=== PATIENT | male | born 1955 | race African-American/Black ===

== ENCOUNTER 2016-11-09 11:31 | Inpatient (IN) | payer MEDICARE, MEDICAID ==
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
[2016-11-09 16:57] LABS: Basophils % (A) 1 %; CH 29.3; Eosinophils # (A) 0.2 k/uL (0-0.7); Eosinophils % (A) 4 %; HCT 33.4 % (39.0-53.0); HDW 2.63; HGB 10.1 gm/dL (13.0-17.5); Hypochromasia Slight; Luc # (Auto) 0.18; Luc % (Auto) 4; Lymphocytes # (A) 1.5 k/uL (1.0-4.8); Lymphocytes % (A) 30 %; MCH 28.8 pg (25.0-35.0); MCHC 30.4 g/dL (31.0-37.0); MCV 94.8 fL (80.0-100.0); Mean Platelet Volume 6.8; Monocytes # (A) 0.3 k/uL (0-1.0); Monocytes % (A) 7 %; Neutrophils # (A) 2.8 k/uL (1.3-7.7); Neutrophils % (A) 56 %; RBC 3.52 m/uL (4.30-5.90); RDW 15.3 % (11.5-15.5); WBC (Perox) 5.35
[2016-11-09 17:06] LABS: ALT 39 U/L (21-72); AST 27 U/L (17-59); Alkaline Phosphatase 76 U/L (38-126); Anion Gap 14 mmol/L; Blood Urea Nitrogen 15 mg/dL (9-20); Calcium 9.4 mg/dL (8.4-10.2); Carbon Dioxide 22 mmol/L (22-30); Chloride 106 mmol/L (98-107); Glucose 82 mg/dL (74-99); Non-African American GFR(MDRD) >60 (>60 ml/min/1.73 sqM); Potassium 3.9 mmol/L (3.5-5.1); Sodium 142 mmol/L (137-145); Total Bilirubin 0.4 mg/dL (0.2-1.3); Total Protein 7.8 g/dL (6.3-8.2)
[2016-11-09] MEDS ORDERED: ACETAMINOPHEN TAB 325 MG TAB PO PRN (18:45)
[2016-11-09] MEDS ORDERED: MAGNESIUM HYDROXIDE 2,400 MG/10 ML CUP PO PRN (18:45)
[2016-11-09 19:08] LABS: Appearance,Urine Clear (Clear); Bilirubin,Urine Negative (Negative); Glucose,Urine (UA) Negative (Negative); Ketones,Urine Negative (Negative); Leukocyte Esterase,Urine Negative (Negative); Nitrite,Urine Negative (Negative); Protein,Urine Negative (Negative); Specific Gravity,Urine 1.014 (1.001-1.035); UA Billing (MACRO vs. MICRO) CHEM; Urobilinogen,Urine <2.0 mg/dL (<2.0)
[2016-11-09 20:22] VITALS: BMI 24.4
[2016-11-09] MEDS: RITONAVIR 100 MG TAB PO SCH (22:42)
[2016-11-09] MEDS: MELATONIN 3 MG TABLET PO SCH (22:42)
[2016-11-09] MEDS: AMMONIUM LACTATE 12% LOTION 225 GM BTL TOPICAL SCH (22:42)
[2016-11-09] MEDS: TRIAMCINOLONE ACET 0.5% CREAM 15 GM TUBE TOPICAL SCH (22:43)
[2016-11-09] MEDS: GABAPENTIN 400 MG CAP PO SCH (22:43)
[2016-11-09] MEDS: RIVAROXABAN 10 MG TAB PO SCH (22:43)
[2016-11-10] MEDS: ATENOLOL 25 MG TAB PO SCH (09:24)
[2016-11-10] MEDS: RITONAVIR 100 MG TAB PO SCH ×2 (09:24→20:44)
[2016-11-10] MEDS: OXYBUTYNIN CHLORIDE 5 MG TAB PO SCH (09:25)
[2016-11-10] MEDS: MEGESTROL 400 MG/10 ML CUP PO SCH (09:25)
[2016-11-10] MEDS: ARIPiprazole 5 MG TAB PO SCH (09:26)
[2016-11-10] MEDS: ESCITALOPRAM 20 MG TAB PO SCH (09:26)
[2016-11-10] MEDS: AMMONIUM LACTATE 12% LOTION 225 GM BTL TOPICAL SCH ×2 (09:27→20:56)
[2016-11-10] MEDS: GABAPENTIN 400 MG CAP PO SCH ×4 (09:27→20:46)
[2016-11-10] MEDS: METHADONE 10 MG TAB PO SCH (09:28)
[2016-11-10] MEDS: METHADONE 5 MG TAB PO SCH (09:30)
[2016-11-10] MEDS: NICOTINE 14MG/24HR PATCH TRANSDERM SCH (09:30)
[2016-11-10] MEDS: TRIAMCINOLONE ACET 0.5% CREAM 15 GM TUBE TOPICAL SCH ×5 (09:33→20:57)
[2016-11-10 11:16] LABS: ALT 36 U/L (21-72); AST 29 U/L (17-59); Alkaline Phosphatase 84 U/L (38-126); Anion Gap 15 mmol/L; Blood Urea Nitrogen 15 mg/dL (9-20); Calcium 10.5 mg/dL (8.4-10.2); Carbon Dioxide 26 mmol/L (22-30); Chloride 104 mmol/L (98-107); Glucose 70 mg/dL (74-99); Non-African American GFR(MDRD) >60 (>60 ml/min/1.73 sqM); Potassium 4.6 mmol/L (3.5-5.1); Sodium 145 mmol/L (137-145); Total Bilirubin 0.5 mg/dL (0.2-1.3); Total Protein 8.7 g/dL (6.3-8.2)
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
[2016-11-10] MEDS: PREZISTA 600MG PO SCH ×2 (14:02→20:45)
[2016-11-10] MEDS: ISENTRESS 400 MG PO SCH ×2 (14:03→20:45)
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
[2016-11-10] MEDS: BACLOFEN 10 MG TAB PO PRN ×2 (15:30→20:56)
[2016-11-10] MEDS: ALBUTEROL INHALER 60 PUFF/8 GM INHALER INHALATION PRN ×2 (16:59→21:43)
[2016-11-10] MEDS: RIVAROXABAN 10 MG TAB PO SCH (20:44)
[2016-11-10] MEDS: MELATONIN 3 MG TABLET PO SCH (20:44)
[2016-11-11] MEDS: ATENOLOL 25 MG TAB PO SCH (08:32)
[2016-11-11] MEDS: AMMONIUM LACTATE 12% LOTION 225 GM BTL TOPICAL SCH ×2 (08:32→20:47)
[2016-11-11] MEDS: OXYBUTYNIN CHLORIDE 5 MG TAB PO SCH (08:32)
[2016-11-11] MEDS: TRIAMCINOLONE ACET 0.5% CREAM 15 GM TUBE TOPICAL SCH ×4 (08:32→20:59)
[2016-11-11] MEDS: NICOTINE 14MG/24HR PATCH TRANSDERM SCH (08:32)
[2016-11-11] MEDS: RITONAVIR 100 MG TAB PO SCH ×2 (08:32→20:46)
[2016-11-11] MEDS: ESCITALOPRAM 20 MG TAB PO SCH (08:33)
[2016-11-11] MEDS: METHADONE 10 MG TAB PO SCH (08:33)
[2016-11-11] MEDS: MEGESTROL 400 MG/10 ML CUP PO SCH (08:34)
[2016-11-11] MEDS: ARIPiprazole 5 MG TAB PO SCH (08:34)
[2016-11-11] MEDS: GABAPENTIN 400 MG CAP PO SCH ×4 (08:34→20:45)
[2016-11-11] MEDS: METHADONE 5 MG TAB PO SCH (08:34)
[2016-11-11] MEDS: PREZISTA 600MG PO SCH ×2 (08:35→20:45)
[2016-11-11] MEDS: ALBUTEROL INHALER 60 PUFF/8 GM INHALER INHALATION PRN ×3 (09:04→20:43)
[2016-11-11] MEDS: ISENTRESS 400 MG PO SCH ×2 (09:51→20:45)
[2016-11-11] MEDS: BACLOFEN 10 MG TAB PO PRN ×3 (09:52→20:58)
--- NOTE | 2016-11-11 11:09 | P.PN ---
Progress Note - Text SUBJECTIVE: Mr. Mendez requested a change in the prescription of baclofen. He was so sedated dysarthric that it was difficult to understand exactly what he is requesting. OBJECTIVE: He presented as a casually groomed sedated 61-year-old male with marked vitiligo. His speech was dysarthric and he was drooling. He appeared to attend to the interview. He had a flat facial expression. He was alert and oriented to person, time and place. He showed psychomotor retardation but no abnormal movements. His speech was spontaneous and dysarthric with decreased rate and volume. His affect was flat. He denied suicidal ideation or wishes. He did not express ideas reference or paranoid ideation. His thinking was concrete but his associations were coherent and logical. He did not appear to be responding to internal stimuli. His UDS for admission was positive for methadone and cocaine. He stated he may return to his room and board and will have money to pay his rent when he receives his November SSD. ASSESSMENT: He is sedated, dysarthric and drooling most likely from the 75 mg morning dose of methadone. UDS shows continued use of cocaine. There is no evidence of psychotic symptoms including auditory or visual hallucinations. PLAN: She knew current treatment plan including methadone 75 mg per day as prescribed by [facility]. Evaluate clinical status response to treatment on a daily basis. Participate in therapeutic groups and activities as tolerated. Consider discharge on 11/12/2016.
[2016-11-11] MEDS: MELATONIN 3 MG TABLET PO SCH (20:46)
[2016-11-11] MEDS: RIVAROXABAN 10 MG TAB PO SCH (20:57)
[2016-11-12] MEDS: ALBUTEROL INHALER 60 PUFF/8 GM INHALER INHALATION PRN ×3 (08:21→20:43)
[2016-11-12] MEDS: NICOTINE 14MG/24HR PATCH TRANSDERM SCH (08:36)
[2016-11-12] MEDS: PREZISTA 600MG PO SCH ×2 (08:37→20:58)
[2016-11-12] MEDS: ATENOLOL 25 MG TAB PO SCH (08:37)
[2016-11-12] MEDS: AMMONIUM LACTATE 12% LOTION 225 GM BTL TOPICAL SCH ×2 (08:37→21:08)
[2016-11-12] MEDS: ARIPiprazole 5 MG TAB PO SCH (08:37)
[2016-11-12] MEDS: GABAPENTIN 400 MG CAP PO SCH ×4 (08:38→21:07)
[2016-11-12] MEDS: MEGESTROL 400 MG/10 ML CUP PO SCH (08:38)
[2016-11-12] MEDS: ESCITALOPRAM 20 MG TAB PO SCH (08:38)
[2016-11-12] MEDS: METHADONE 10 MG TAB PO SCH (08:39)
[2016-11-12] MEDS: ISENTRESS 400 MG PO SCH ×2 (08:40→20:58)
[2016-11-12] MEDS: OXYBUTYNIN CHLORIDE 5 MG TAB PO SCH (08:40)
[2016-11-12] MEDS: METHADONE 5 MG TAB PO SCH (08:40)
[2016-11-12] MEDS: RITONAVIR 100 MG TAB PO SCH ×2 (08:41→20:55)
[2016-11-12] MEDS: TRIAMCINOLONE ACET 0.5% CREAM 15 GM TUBE TOPICAL SCH ×4 (08:41→21:08)
[2016-11-12] MEDS: BACLOFEN 10 MG TAB PO PRN ×2 (09:44→21:57)
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
[2016-11-12] MEDS: MAG HYDROX/AL HYDROX/SIMETH 30 ML CUP PO PRN (15:32)
[2016-11-12] MEDS: RIVAROXABAN 10 MG TAB PO SCH (20:55)
[2016-11-12] MEDS: MELATONIN 3 MG TABLET PO SCH (20:56)
[2016-11-13] MEDS: MAG HYDROX/AL HYDROX/SIMETH 30 ML CUP PO PRN (00:47)
[2016-11-13] MEDS: NICOTINE 14MG/24HR PATCH TRANSDERM SCH (08:11)
[2016-11-13] MEDS: AMMONIUM LACTATE 12% LOTION 225 GM BTL TOPICAL SCH ×2 (08:12→21:35)
[2016-11-13] MEDS: ATENOLOL 25 MG TAB PO SCH (08:13)
[2016-11-13] MEDS: PREZISTA 600MG PO SCH ×2 (08:13→21:36)
[2016-11-13] MEDS: ARIPiprazole 10 MG TAB PO SCH (08:13)
[2016-11-13] MEDS: METHADONE 10 MG TAB PO SCH (08:14)
[2016-11-13] MEDS: MEGESTROL 400 MG/10 ML CUP PO SCH (08:14)
[2016-11-13] MEDS: ESCITALOPRAM 20 MG TAB PO SCH (08:14)
[2016-11-13] MEDS: GABAPENTIN 400 MG CAP PO SCH ×4 (08:14→21:39)
[2016-11-13] MEDS: METHADONE 5 MG TAB PO SCH (08:15)
[2016-11-13] MEDS: OXYBUTYNIN CHLORIDE 5 MG TAB PO SCH (08:15)
[2016-11-13] MEDS: RITONAVIR 100 MG TAB PO SCH ×2 (08:16→21:38)
[2016-11-13] MEDS: ISENTRESS 400 MG PO SCH ×2 (08:16→21:37)
[2016-11-13] MEDS: ALBUTEROL INHALER 60 PUFF/8 GM INHALER INHALATION PRN ×3 (09:19→21:15)
[2016-11-13] MEDS: TRIAMCINOLONE ACET 0.5% CREAM 15 GM TUBE TOPICAL SCH ×4 (10:27→21:39)
[2016-11-13] MEDS: BACLOFEN 10 MG TAB PO PRN (14:25)
--- NOTE | 2016-11-13 15:28 | P.PN ---
Progress Note - Text Interval history: Patient is seen in cross coverage today for Dr. Scott. He reports he slept about 4-6 hours, interrupted last night. He does state that he would like some snacks in between meals. His mood he says is down today. He does not voice any adverse psychotropic medication side effects. Mental status exam: He is alert and cooperative with the interview. Speech is fluent, not rapid or pressured. His thought processes are organized. Regarding any hallucinations he states that he woke up out of sleep saying " help me." He does not seem to verbalize any active hallucinations. He denies any thoughts of harm to self or others. His mood is depressed. He does not show any agitation. Plan: Patient will be maintained on current psychotropic medication regimen. We 'll monitor for any medication side effects and monitor his ongoing response. We'll continue to cover this patient for Dr. Scott through the weekend.
[2016-11-13] MEDS: MELATONIN 3 MG TABLET PO SCH (21:36)
[2016-11-13] MEDS: RIVAROXABAN 10 MG TAB PO SCH (21:38)
[2016-11-14] MEDS: AMMONIUM LACTATE 12% LOTION 225 GM BTL TOPICAL SCH ×2 (08:28→20:48)
[2016-11-14] MEDS: NICOTINE 14MG/24HR PATCH TRANSDERM SCH (08:28)
[2016-11-14] MEDS: PREZISTA 600MG PO SCH ×2 (08:29→20:48)
[2016-11-14] MEDS: ARIPiprazole 10 MG TAB PO SCH (08:29)
[2016-11-14] MEDS: ATENOLOL 25 MG TAB PO SCH (08:29)
[2016-11-14] MEDS: RITONAVIR 100 MG TAB PO SCH ×2 (08:30→20:50)
[2016-11-14] MEDS: ISENTRESS 400 MG PO SCH ×2 (08:30→20:49)
[2016-11-14] MEDS: GABAPENTIN 400 MG CAP PO SCH ×4 (08:31→20:50)
[2016-11-14] MEDS: ESCITALOPRAM 20 MG TAB PO SCH (08:31)
[2016-11-14] MEDS: TRIAMCINOLONE ACET 0.5% CREAM 15 GM TUBE TOPICAL SCH ×4 (08:31→20:50)
[2016-11-14] MEDS: OXYBUTYNIN CHLORIDE 5 MG TAB PO SCH (08:31)
[2016-11-14] MEDS: MEGESTROL 400 MG/10 ML CUP PO SCH (08:32)
[2016-11-14] MEDS: METHADONE 10 MG TAB PO SCH (08:32)
[2016-11-14] MEDS: METHADONE 5 MG TAB PO SCH (08:33)
[2016-11-14] MEDS: ALBUTEROL INHALER 60 PUFF/8 GM INHALER INHALATION PRN ×2 (09:32→14:20)
[2016-11-14] MEDS: BACLOFEN 10 MG TAB PO PRN ×2 (10:48→20:52)
--- NOTE | 2016-11-14 16:37 | P.PN ---
Progress Note - Text Interval history: Patient is seen in coverage today for Dr. Scott. He does seem to report that he slept well last night. He did not wake up yelling help me like he had the previous night. Today he verbalizes that he was wearing the nicotine patch that night that he woke up. He relays that he's been participating in groups. He does not voice any adverse psychotropic medication side effects. He seems to report getting along well with others. Mental status exam: He is alert and cooperative with the interview. He does not show any agitation. He describes his mood is doing okay. He denies any thoughts of harm to self others. He has not verbalize any hallucinations. Plan: We'll maintain current psychotropic medication regimen. Continue to monitor for any medication side effects. Dr. Scott will resume care this patient starting tomorrow.
[2016-11-14] MEDS: MELATONIN 3 MG TABLET PO SCH (20:49)
[2016-11-14] MEDS: RIVAROXABAN 10 MG TAB PO SCH (20:50)
[2016-11-15 06:20] VITALS: TEMP 98.6
[2016-11-15] MEDS: ISENTRESS 400 MG PO SCH (08:23)
[2016-11-15] MEDS: PREZISTA 600MG PO SCH (08:23)
[2016-11-15] MEDS: AMMONIUM LACTATE 12% LOTION 225 GM BTL TOPICAL SCH (08:23)
[2016-11-15] MEDS: NICOTINE 14MG/24HR PATCH TRANSDERM SCH (08:24)
[2016-11-15] MEDS: RITONAVIR 100 MG TAB PO SCH (08:24)
[2016-11-15] MEDS: GABAPENTIN 400 MG CAP PO SCH ×2 (08:24→12:35)
[2016-11-15] MEDS: ESCITALOPRAM 20 MG TAB PO SCH (08:24)
[2016-11-15] MEDS: ATENOLOL 25 MG TAB PO SCH (08:24)
[2016-11-15] MEDS: TRIAMCINOLONE ACET 0.5% CREAM 15 GM TUBE TOPICAL SCH ×2 (08:24→13:00)
[2016-11-15] MEDS: ARIPiprazole 10 MG TAB PO SCH (08:24)
[2016-11-15] MEDS: METHADONE 10 MG TAB PO SCH (08:25)
[2016-11-15] MEDS: MEGESTROL 400 MG/10 ML CUP PO SCH (08:25)
[2016-11-15] MEDS: METHADONE 5 MG TAB PO SCH (08:26)
[2016-11-15 08:28] VITALS: BP 136/82; PULSE 70; RESP 18
[2016-11-15] MEDS: ALBUTEROL INHALER 60 PUFF/8 GM INHALER INHALATION PRN ×2 (09:27→13:42)
[2016-11-15] MEDS: BACLOFEN 10 MG TAB PO PRN (10:27)
[2016-11-15] MEDS: OXYBUTYNIN CHLORIDE 5 MG TAB PO SCH (11:10)
--- NOTE | 2016-11-17 10:29 | DS ---
DATE OF ADMISSION: 11/09/2016 DATE OF DISCHARGE: 11/15/2016 PSYCHIATRIC DISCHARGE SUMMARY ADMISSION AND DISCHARGE DIAGNOSES: 1. Opioid use disorder, severe on substitution treatment. 2. Cognitive disorder. 3. Rule out psychotic disorder. 4. Rule out mood disorder. 5. Underlying HIV on HAART with questionable compliance. 6. Essential hypertension. 7. History of lower extremity deep venous thrombosis. 8. History of heart failure. 9. Chronic obstructive pulmonary disease. HISTORY OF PRESENTING ILLNESS: Patient presented with symptoms of depression. He. Is on AA. He was in a methadone clinic. Patient indicated that he was hearing voices telling him to kill himself and also that someone was trying to kill him. He was sleeping poorly. He was taking methadone 75 mg daily and was consistent follow up with methadone maintenance, which was verified by methadone program staff. He has had 4 prior psychiatric hospitalizations with his last in July 2016 with a diagnosis of major depression, substance use disorder included opiates, cocaine and nicotine. He had followup through [facility]. He was discharged in July on Abilify 5 mg a day and Lexapro 20 mg a day. He was vague as to whether or not he had been following through with his medications. His substance use history included history of heroin use for 40 years. He indicated that he had contracted HIV through his IV drug use. He had a history of cocaine use. He was admitted for further evaluation. Past medical history, review of systems and physical exam as per medical consultation of Dr. Woodward. DIAGNOSTIC STUDIES: CBC was positive for a low hemoglobin of 10.1, MCV 94.8. WBC 5.0. Comprehensive metabolic profile was unremarkable, glucose 70, creatinine 0.9. TSH 1.4. Urinalysis unremarkable. Urine drug screen was positive for cocaine and methadone. COURSE OF HOSPITALIZATION: The patient was admitted for comprehensive medical, psychiatric and psychosocial evaluation. We made efforts to engage the patient in individual and group therapeutic activities. The patient was continued on methadone maintenance 75 mg daily. He was also started on Abilify 5 mg a day and Lexapro 20 mg a day. In his hospitalization, the patient had some daytime sedation. It was felt that he may be reacting to methadone, even though he presumably has been compliant with methadone maintenance before his admission. He had not been sleeping well. He had some nightmares. His Abilify was increased to 10 mg a day. Other medications were continued the same. He was cooperative with care. His sleep gradually improved. His mood showed slow gradual improvement. He was tolerating his medications well. He was attending groups. It is noted that he has been compliant with his methadone maintenance though he has not followed through with mental health follow up through [facility] on previous referrals. We had extensive discussions with the patient as well as mental health regards to coordinating a follow-up plan. Patient voiced improvement in his mood and willingness to follow through with a mental health outpatient program. He was able to cooperate to engage in discharge planning. CONDITION AT DISCHARGE: The patient was stable. His mood was improved. He tolerated his medications well. There was no indication of thoughts of self harm. He felt that overall his mood was stable, though he was able to verbalize recognizing the need for further follow-up care. RECOMMENDATIONS AND FOLLOWUP: Patient is discharged to home. DISCHARGE MEDICATIONS: 1. Abilify 10 mg a day. 2. Lexapro 20 mg a day. 3. Albuterol inhaler 2 puffs every 6 hours as needed. 4. Atenolol 25 mg daily. 5. Baclofen 10 mg twice a day as needed. 6. Neurontin 800 mg 4 times a day. 7. Megace 400 mg daily. 8. Methadone 75 mg daily for methadone maintenance. 9. Nicotine patch. 10. Ditropan 5 mg daily. 11. Isentress 400 mg twice a day. 12. Norvir 100 mg twice a day. 13. Xarelto 20 mg a day. 14. Lac-Hydrin topical twice a day. 15. Augmentin 875/125 one tablet twice a day. 16. Zithromax 500 mg a day for 3 days. 17. Prezista 600 mg twice a day. 18. Melatonin 6 mg a day. 19. Kenalog cream 4 times daily. He was given education regarding stop smoking. Followup included an appointment with [facility] November 19 at 9.15. He was referred to Dr. Mohamud for follow up in one week. Patient voiced understanding of discharge plan and follow-up recommendations.
== END 2016-11-15 17:06 | disposition home or self-care (01) | DRG 884 ==
LOC: EC 11:31 → 3MHU 18:40
PROVIDERS: ADMIT Psychiatry & Neurology Psychiatry; ATTEND Psychiatry & Neurology Psychiatry
DX: F09 Unspecified mental disorder due to known physiological condition (principal); R45.851 Suicidal ideations; I11.0 Hypertensive heart disease with heart failure; I50.9 Heart failure, unspecified; F29 Unspecified psychosis not due to a substance or known physiological condition; F39 Unspecified mood [affective] disorder; E78.5 Hyperlipidemia, unspecified; D64.9 Anemia, unspecified; F11.90 Opioid use, unspecified, uncomplicated; F17.200 Nicotine dependence, unspecified, uncomplicated; J44.9 Chronic obstructive pulmonary disease, unspecified; Z21 Asymptomatic human immunodeficiency virus [HIV] infection status; L80 Vitiligo; Z79.899 Other long term (current) drug therapy; Z82.49 Family history of ischemic heart disease and other diseases of the circulatory system; Z86.14 Personal history of Methicillin resistant Staphylococcus aureus infection; Z86.718 Personal history of other venous thrombosis and embolism
CPT/HCPCS: 36415; 80053; 80306; 81003; 82075; 84443; 85025; 94640; 99285

== ENCOUNTER 2017-02-01 11:02 | Emergency (ER) | payer MEDICARE, OTHER ==
[2017-02-01 11:36] VITALS: PULSE 75; RESP 18; TEMP 98.2
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
[2017-02-01] MEDS ORDERED: PROPARACAINE 0.5% OPHTH DROPS 15 ML BTL LEFT EYE STA (12:50)
[2017-02-01 13:37] VITALS: BP 137/84
== END 2017-02-01 13:37 | disposition home or self-care (01) ==
LOC: EC 11:02
DX: H16.002 Unspecified corneal ulcer, left eye (principal); I50.9 Heart failure, unspecified; I10 Essential (primary) hypertension; F31.9 Bipolar disorder, unspecified; F41.9 Anxiety disorder, unspecified; F17.200 Nicotine dependence, unspecified, uncomplicated; Z79.899 Other long term (current) drug therapy; Z79.01 Long term (current) use of anticoagulants; Z88.1 Allergy status to other antibiotic agents; Z88.2 Allergy status to sulfonamides; Z88.6 Allergy status to analgesic agent; Z86.718 Personal history of other venous thrombosis and embolism
CPT/HCPCS: 99283

== ENCOUNTER → 2017-02-01 | Outpatient (CLI) | payer MEDICARE, OTHER ==
[2017-02-01 14:26] LABS: Anisocytosis Slight; Basophils % (A) 1 %; CH 30.1; CHCM 31.3; Eosinophils # (A) 0.2 k/uL (0-0.7); Eosinophils % (A) 3 %; HCT 38.5 % (39.0-53.0); HDW 2.39; Luc % (Auto) 3; Lymphocytes # (A) 1.5 k/uL (1.0-4.8); Lymphocytes % (A) 26 %; MCH 30.3 pg (25.0-35.0); MCHC 31.3 g/dL (31.0-37.0); MCV 96.8 fL (80.0-100.0); Macrocytosis Slight; Mean Platelet Volume 6.4; Monocytes # (A) 0.2 k/uL (0-1.0); Monocytes % (A) 4 %; Neutrophils # (A) 3.6 k/uL (1.3-7.7); Neutrophils % (A) 62 %; RBC 3.97 m/uL (4.30-5.90); RDW 16.6 % (11.5-15.5); WBC 5.8 k/uL (3.8-10.6); WBC (Perox) 6.56
[2017-02-01 14:53] LABS: ALT 51 U/L (21-72); AST 68 U/L (17-59); Alkaline Phosphatase 66 U/L (38-126); Anion Gap 11 mmol/L; Blood Urea Nitrogen 15 mg/dL (9-20); Carbon Dioxide 28 mmol/L (22-30); Chloride 105 mmol/L (98-107); Cholesterol 206 mg/dL (<200); Glucose 71 mg/dL (74-99); HDL Cholesterol 64 mg/dL (40-60); Magnesium 2.1 mg/dL (1.6-2.3); Non-African American GFR(MDRD) >60 (>60 ml/min/1.73 sqM); Potassium 4.5 mmol/L (3.5-5.1); Sodium 144 mmol/L (137-145); Total Bilirubin 0.6 mg/dL (0.2-1.3); Triglycerides 166 mg/dL (<150)
[2017-02-01 15:23] LABS: Prostate Specific Antigen <0.06 ng/mL (0.00-4.00)
[2017-02-01 15:41] LABS: Vitamin B12 398 pg/mL (239-931)
[2017-02-01 20:12] LABS: Hemoglobin A1C 5.5 % (4.2-6.1)
[2017-02-03 09:02] LABS: LOG HCV IU/mL 5.71 (<1.08)
== END | disposition home or self-care (01) ==
LOC: LABWHC1 13:41
PROVIDERS: ATTEND Nurse Practitioner
DX: B20 Human immunodeficiency virus [HIV] disease (principal); B19.20 Unspecified viral hepatitis C without hepatic coma; Z79.899 Other long term (current) drug therapy
CPT/HCPCS: 36415; 80053; 80061; 80306; 82306; 82607; 83036; 83735; 84153; 84439; 84443; 85025; 87522

== ENCOUNTER 2017-02-25 09:50 | Emergency (ER) | payer MEDICARE, OTHER ==
[2017-02-25 10:00] VITALS: BP 140/83; PULSE 94; RESP 20; TEMP 98
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
== END 2017-02-25 11:22 | disposition home or self-care (01) ==
LOC: EC 09:50
DX: H54.7 Unspecified visual loss (principal); F17.200 Nicotine dependence, unspecified, uncomplicated; Z88.1 Allergy status to other antibiotic agents; Z88.2 Allergy status to sulfonamides; Z88.6 Allergy status to analgesic agent
CPT/HCPCS: 99283

== ENCOUNTER 2017-03-28 10:21 | Inpatient (IN) | payer MEDICARE, MEDICAID ==
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
[2017-03-28] MEDS ORDERED: MAG HYDROX/AL HYDROX/SIMETH 30 ML CUP PO PRN (16:38)
[2017-03-28] MEDS ORDERED: LORazepam 1 MG TAB PO PRN (17:35)
[2017-03-28] MEDS ORDERED: LORazepam 2 MG/ML SYRINGE IM PRN (17:35)
[2017-03-28 17:37] LABS: Appearance,Urine Clear (Clear); Bilirubin,Urine Negative (Negative); Glucose,Urine (UA) Negative (Negative); Ketones,Urine Negative (Negative); Leukocyte Esterase,Urine Negative (Negative); Nitrite,Urine Negative (Negative); Protein,Urine Negative (Negative); Specific Gravity,Urine 1.013 (1.001-1.035); UA Billing (MACRO vs. MICRO) CHEM
[2017-03-28] MEDS ORDERED: ZIPRASIDONE 20 MG VIAL IM PRN (17:37)
[2017-03-28] MEDS: GABAPENTIN 400 MG CAP PO SCH (21:45)
[2017-03-28] MEDS: BACLOFEN 10 MG TAB PO SCH (21:47)
[2017-03-28] MEDS: RITONAVIR 100 MG TAB PO SCH (21:47)
[2017-03-28] MEDS: MIRTAZAPINE 45 MG TABLET PO SCH (21:47)
[2017-03-28] MEDS: RALTEGRAVIR POTASSIUM 400 MG TABLET PO SCH (21:48)
[2017-03-28] MEDS: RIVAROXABAN 10 MG TAB PO SCH (21:48)
[2017-03-28] MEDS: TRIAMCINOLONE ACET 0.5% CREAM 15 GM TUBE TOPICAL SCH (22:12)
[2017-03-29] MEDS: BACLOFEN 10 MG TAB PO SCH ×2 (08:25→21:04)
[2017-03-29] MEDS: RALTEGRAVIR POTASSIUM 400 MG TABLET PO SCH ×2 (08:25→21:04)
[2017-03-29] MEDS: amLODIPine 10 MG TAB PO SCH (08:25)
[2017-03-29] MEDS: RITONAVIR 100 MG TAB PO SCH ×2 (08:25→21:04)
[2017-03-29] MEDS: ATENOLOL 25 MG TAB PO SCH (08:25)
[2017-03-29] MEDS: ALBUTEROL INHALER 60 PUFF/8 GM INHALER INHALATION PRN ×2 (08:28→20:20)
[2017-03-29 09:31] LABS: Aty Lym Flag Slight; CH 30.9; CHCM 34.5; HCT 35.5 % (39.0-53.0); HDW 3.19; MCH 30.4 pg (25.0-35.0); MCHC 33.8 g/dL (31.0-37.0); Mean Platelet Volume 7.9; RBC 3.96 m/uL (4.30-5.90); RDW 13.8 % (11.5-15.5); WBC 4.6 k/uL (3.8-10.6); WBC (Perox) 4.74
[2017-03-29 09:32] LABS: MCV 89.8 fL (80.0-100.0)
[2017-03-29] MEDS: TRIAMCINOLONE ACET 0.5% CREAM 15 GM TUBE TOPICAL SCH ×2 (10:22→21:05)
[2017-03-29] MEDS: GABAPENTIN 400 MG CAP PO SCH ×3 (10:35→21:04)
[2017-03-29 10:47] LABS: ALT 17 U/L (21-72); AST 62 U/L (17-59); Alkaline Phosphatase 90 U/L (38-126); Anion Gap 12 mmol/L; Blood Urea Nitrogen 10 mg/dL (9-20); Calcium 10.5 mg/dL (8.4-10.2); Carbon Dioxide 20 mmol/L (22-30); Chloride 113 mmol/L (98-107); Glucose 145 mg/dL (74-99); Non-African American GFR(MDRD) >60 (>60 ml/min/1.73 sqM); Potassium 5.9 mmol/L (3.5-5.1); Sodium 145 mmol/L (137-145); Total Bilirubin 1.1 mg/dL (0.2-1.3); Total Protein 7.8 g/dL (6.3-8.2)
[2017-03-29] MEDS: METHADONE 10 MG TAB PO SCH (10:50)
[2017-03-29 12:38] LABS: Add Differential Manual Differential
[2017-03-29 12:41] LABS: Manual Review Performed; Nucleated Red Blood Cells 0 /100 WBC (0-0); Total Cells Counted 100; Toxic Vacuolation Present
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
[2017-03-29 15:27] VITALS: BMI 24.3
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
[2017-03-29] MEDS: RIVAROXABAN 10 MG TAB PO SCH (21:04)
[2017-03-29] MEDS: MIRTAZAPINE 45 MG TABLET PO SCH (21:04)
[2017-03-29] MEDS: LORazepam 0.5 MG TAB PO PRN (21:08)
[2017-03-30] MEDS: BACLOFEN 10 MG TAB PO SCH ×2 (09:02→20:57)
[2017-03-30] MEDS: ARIPiprazole 10 MG TAB PO SCH (09:02)
[2017-03-30] MEDS: METHADONE 10 MG TAB PO SCH (09:02)
[2017-03-30] MEDS: amLODIPine 10 MG TAB PO SCH (09:02)
[2017-03-30] MEDS: ATENOLOL 25 MG TAB PO SCH (09:02)
[2017-03-30] MEDS: GABAPENTIN 400 MG CAP PO SCH ×3 (09:02→20:59)
[2017-03-30] MEDS: RALTEGRAVIR POTASSIUM 400 MG TABLET PO SCH ×2 (09:03→20:57)
[2017-03-30] MEDS: RITONAVIR 100 MG TAB PO SCH ×2 (09:03→20:57)
[2017-03-30] MEDS: ALBUTEROL INHALER 60 PUFF/8 GM INHALER INHALATION PRN (09:16)
[2017-03-30] MEDS: TRIAMCINOLONE ACET 0.5% CREAM 15 GM TUBE TOPICAL SCH ×2 (10:35→20:58)
--- NOTE | 2017-03-30 12:49 | P.PN ---
Progress Note - Text Interval history: The [place] [facility] [place]. He reports his mood is "Nervous and anxious" regading post discharge placement "I do not like usp ",denies any current hallucination but still endorsing hopeless and helpless feeling , easy overwhelmed with financial and housing problems .Discussed his long history of addiction however he minimizing this Obviously the patient remains in acute safety risk if discharge now without appropriate placement Reviewed medical consult Mental status exam: The patient is alert he is cooperative he reports his mood is "NERVOUS" because "I DO NOT WANT TO END IN STREET" He feels safe in the hospital. He is reporting no homicidal ideation , He is reporting no auditory or visual hallucinations no specific delusions. Insight and judgment are limited Affect is constricted. He demonstrates no verbal or physical aggressiveness. Plan: The patient will continue on his current psychotropic medications , SW is working with [facility] regarding post-discharge placement ,encourage participation in milieu Vital signs reviewed.
[2017-03-30] MEDS: MIRTAZAPINE 45 MG TABLET PO SCH (20:57)
[2017-03-30] MEDS: RIVAROXABAN 10 MG TAB PO SCH (20:58)
[2017-03-31] MEDS: METHADONE 10 MG TAB PO SCH (08:46)
[2017-03-31] MEDS: BACLOFEN 10 MG TAB PO SCH ×2 (08:47→20:53)
[2017-03-31] MEDS: RITONAVIR 100 MG TAB PO SCH ×2 (08:47→20:53)
[2017-03-31] MEDS: GABAPENTIN 400 MG CAP PO SCH ×3 (08:47→20:53)
[2017-03-31] MEDS: amLODIPine 10 MG TAB PO SCH (08:47)
[2017-03-31] MEDS: TRIAMCINOLONE ACET 0.5% CREAM 15 GM TUBE TOPICAL SCH ×2 (08:47→21:00)
[2017-03-31] MEDS: ATENOLOL 25 MG TAB PO SCH (08:47)
[2017-03-31] MEDS: RALTEGRAVIR POTASSIUM 400 MG TABLET PO SCH ×2 (08:47→20:53)
[2017-03-31] MEDS: ARIPiprazole 10 MG TAB PO SCH (09:25)
[2017-03-31] MEDS: ALBUTEROL INHALER 60 PUFF/8 GM INHALER INHALATION PRN ×2 (09:30→16:38)
[2017-03-31 09:58] LABS: ALT 21 U/L (21-72); AST 34 U/L (17-59); Alkaline Phosphatase 106 U/L (38-126); Anion Gap 16 mmol/L; Blood Urea Nitrogen 17 mg/dL (9-20); Calcium 10.4 mg/dL (8.4-10.2); Carbon Dioxide 20 mmol/L (22-30); Chloride 107 mmol/L (98-107); Glucose 93 mg/dL (74-99); Non-African American GFR(MDRD) >60 (>60 ml/min/1.73 sqM); Potassium 4.5 mmol/L (3.5-5.1); Sodium 143 mmol/L (137-145); Total Bilirubin 0.5 mg/dL (0.2-1.3); Total Protein 8.5 g/dL (6.3-8.2)
[2017-03-31] MEDS ORDERED: METHADONE 10 MG TAB PO ONE (15:16)
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
[2017-03-31] MEDS: RIVAROXABAN 10 MG TAB PO SCH (20:53)
[2017-03-31] MEDS: MIRTAZAPINE 45 MG TABLET PO SCH (20:53)
[2017-04-01] MEDS: ARIPiprazole 10 MG TAB PO SCH (08:45)
[2017-04-01] MEDS: amLODIPine 10 MG TAB PO SCH (08:45)
[2017-04-01] MEDS: ATENOLOL 25 MG TAB PO SCH (08:45)
[2017-04-01] MEDS: METHADONE 10 MG TAB PO SCH (08:45)
[2017-04-01] MEDS: GABAPENTIN 400 MG CAP PO SCH ×3 (08:45→20:20)
[2017-04-01] MEDS: BACLOFEN 10 MG TAB PO SCH ×2 (08:45→20:20)
[2017-04-01] MEDS: RITONAVIR 100 MG TAB PO SCH ×2 (08:47→20:20)
[2017-04-01] MEDS: TRIAMCINOLONE ACET 0.5% CREAM 15 GM TUBE TOPICAL SCH ×2 (08:48→20:20)
[2017-04-01] MEDS: LORazepam 0.5 MG TAB PO PRN (08:48)
[2017-04-01] MEDS: RALTEGRAVIR POTASSIUM 400 MG TABLET PO SCH ×2 (08:48→20:20)
[2017-04-01] MEDS: ALBUTEROL INHALER 60 PUFF/8 GM INHALER INHALATION PRN ×2 (09:15→21:00)
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
[2017-04-01] MEDS: LIDOCAINE 3% TOPICAL SCH ×3 (19:09→19:11)
[2017-04-01] MEDS: DARUNAVIR ETHANOLATE 600 MG PO SCH ×3 (19:10→19:12)
[2017-04-01] MEDS: RIVAROXABAN 10 MG TAB PO SCH (20:20)
[2017-04-01] MEDS: MIRTAZAPINE 45 MG TABLET PO SCH (20:20)
[2017-04-02] MEDS: ARIPiprazole 10 MG TAB PO SCH (08:37)
[2017-04-02] MEDS: RALTEGRAVIR POTASSIUM 400 MG TABLET PO SCH ×2 (08:37→20:59)
[2017-04-02] MEDS: ATENOLOL 25 MG TAB PO SCH (08:37)
[2017-04-02] MEDS: BACLOFEN 10 MG TAB PO SCH ×2 (08:37→20:59)
[2017-04-02] MEDS: amLODIPine 10 MG TAB PO SCH (08:37)
[2017-04-02] MEDS: GABAPENTIN 400 MG CAP PO SCH ×3 (08:37→20:59)
[2017-04-02] MEDS: METHADONE 10 MG TAB PO SCH (08:38)
[2017-04-02] MEDS: LORazepam 0.5 MG TAB PO PRN (08:38)
[2017-04-02] MEDS: RITONAVIR 100 MG TAB PO SCH ×2 (08:38→20:59)
[2017-04-02] MEDS: TRIAMCINOLONE ACET 0.5% CREAM 15 GM TUBE TOPICAL SCH ×2 (08:38→21:00)
[2017-04-02] MEDS: ALBUTEROL INHALER 60 PUFF/8 GM INHALER INHALATION PRN ×3 (09:10→21:03)
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
[2017-04-02] MEDS: RIVAROXABAN 10 MG TAB PO SCH (20:59)
[2017-04-02] MEDS: MIRTAZAPINE 45 MG TABLET PO SCH (20:59)
[2017-04-03] MEDS: LORazepam 0.5 MG TAB PO PRN (06:07)
[2017-04-03] MEDS: ALBUTEROL INHALER 60 PUFF/8 GM INHALER INHALATION PRN ×3 (08:08→19:33)
[2017-04-03] MEDS: GABAPENTIN 400 MG CAP PO SCH ×3 (08:40→21:01)
[2017-04-03] MEDS: ARIPiprazole 10 MG TAB PO SCH (08:40)
[2017-04-03] MEDS: BACLOFEN 10 MG TAB PO SCH ×2 (08:40→21:01)
[2017-04-03] MEDS: METHADONE 10 MG TAB PO SCH (08:40)
[2017-04-03] MEDS: amLODIPine 10 MG TAB PO SCH (08:40)
[2017-04-03] MEDS: ATENOLOL 25 MG TAB PO SCH (08:40)
[2017-04-03] MEDS: TRIAMCINOLONE ACET 0.5% CREAM 15 GM TUBE TOPICAL SCH ×2 (08:41→21:01)
[2017-04-03] MEDS: RITONAVIR 100 MG TAB PO SCH ×2 (08:41→21:01)
[2017-04-03] MEDS: RALTEGRAVIR POTASSIUM 400 MG TABLET PO SCH ×2 (08:41→21:01)
--- NOTE | 2017-04-03 20:15 | PN ---
DATE OF SERVICE: 04/03/2017 CHIEF COMPLAINT: The patient was admitted due to depression with suicide thoughts. He said he heard voices telling him to jump in the river. He felt overwhelmed with stress issues primarily have been lost his housing and being essentially out on the street. INTERVAL HISTORY: Patient has been doing fairly well. He had a quiet evening last night. He slept well. Today, he has been up and about. He attends groups. He gets out in the day area. He has been interactive with others. He has been cooperative. He seems to be showing a brighter mood day by day. He has a better outlook. He continues to do some planning as far as business. He needs to take care of once he is discharged. He has not had change in his general health. He tolerates his psychotropic medications. MENTAL STATUS: Patient gave good eye contact. Psychomotor activity and speech were normal. His thoughts were clear. He was not somewhat spontaneous and interactive. His affect was a little constricted, though not significantly so. He smiled some. His mood was a little reserved though not clearly down or depressed. He did not appear to be significantly distressed. ASSESSMENT: I will continue the current diagnosis and treatment plan. We will continue psychotropic medications the same. Patient has been making progress. We will focus on discharge planning. Will coordinate with outpatient resources for follow-up care. Would aim to discharge the patient early in the week.
[2017-04-03] MEDS: RIVAROXABAN 10 MG TAB PO SCH (21:01)
[2017-04-03] MEDS: MIRTAZAPINE 45 MG TABLET PO SCH (21:01)
[2017-04-04 04:46] VITALS: RESP 18
[2017-04-04] MEDS: RITONAVIR 100 MG TAB PO SCH ×2 (09:12→21:08)
[2017-04-04] MEDS: RALTEGRAVIR POTASSIUM 400 MG TABLET PO SCH ×2 (09:12→21:08)
[2017-04-04] MEDS: METHADONE 10 MG TAB PO SCH (09:12)
[2017-04-04] MEDS: TRIAMCINOLONE ACET 0.5% CREAM 15 GM TUBE TOPICAL SCH ×2 (09:12→21:08)
[2017-04-04] MEDS: GABAPENTIN 400 MG CAP PO SCH ×3 (09:13→21:08)
[2017-04-04] MEDS: amLODIPine 10 MG TAB PO SCH (09:13)
[2017-04-04] MEDS: ATENOLOL 25 MG TAB PO SCH (09:13)
[2017-04-04] MEDS: BACLOFEN 10 MG TAB PO SCH ×2 (09:13→21:08)
[2017-04-04] MEDS: ARIPiprazole 10 MG TAB PO SCH (09:13)
[2017-04-04] MEDS: ALBUTEROL INHALER 60 PUFF/8 GM INHALER INHALATION PRN ×2 (09:53→14:16)
--- NOTE | 2017-04-04 10:53 | PN ---
DATE OF SERVICE: 04/04/2017 CHIEF COMPLAINT: The patient was admitted due to depression with suicide thoughts. He said he heard voices telling him to jump in the river. He felt overwhelmed with stress issues, primarily having lost his housing and being essentially out on the street. INTERVAL HISTORY: Patient has been doing fairly well. He had a quiet evening last night. He slept about 4 hours last night. Today he has been up and about. He attends groups and is appropriate in groups. He is showing a better mood and outlook. He continues to focus on discharge plans. He notes that he has had some incontinence at night when he sleeps and also notes some urinary urgency. He tolerates his psychotropic medications. MENTAL STATUS EXAM: Patient gave good eye contact. Psychomotor activity was a little restless. Speech was clear. He answered questions with direct responses. His thoughts were coherent and goal-directed. His affect was in a reasonable range. He smiled a little. His mood was quiet but not clearly down or depressed. He did not appear to be distressed. ASSESSMENT: I will continue the current diagnosis and treatment plan. Will continue psychotropic medications the same. I will order a UA as he has been having some urinary complaints. We will continue to focus on discharge planning. Will coordinate with [facility] as well as address housing issues.
[2017-04-04] MEDS: MIRTAZAPINE 45 MG TABLET PO SCH (21:08)
[2017-04-04] MEDS: RIVAROXABAN 10 MG TAB PO SCH (21:08)
[2017-04-05 06:31] VITALS: BP 132/90; PULSE 67; TEMP 98.4
[2017-04-05] MEDS: ARIPiprazole 10 MG TAB PO SCH (08:09)
[2017-04-05] MEDS: amLODIPine 10 MG TAB PO SCH (08:09)
[2017-04-05] MEDS: ATENOLOL 25 MG TAB PO SCH (08:09)
[2017-04-05] MEDS: BACLOFEN 10 MG TAB PO SCH (08:09)
[2017-04-05] MEDS: GABAPENTIN 400 MG CAP PO SCH (08:10)
[2017-04-05] MEDS: METHADONE 10 MG TAB PO SCH (08:10)
[2017-04-05] MEDS: RALTEGRAVIR POTASSIUM 400 MG TABLET PO SCH (08:11)
[2017-04-05] MEDS: RITONAVIR 100 MG TAB PO SCH (08:11)
[2017-04-05] MEDS: ALBUTEROL INHALER 60 PUFF/8 GM INHALER INHALATION PRN (08:11)
[2017-04-05] MEDS: TRIAMCINOLONE ACET 0.5% CREAM 15 GM TUBE TOPICAL SCH (08:11)
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
== END 2017-04-05 10:28 | disposition home or self-care (01) | DRG 885 ==
LOC: EC 10:21 → 3MHU 16:35
PROVIDERS: ADMIT Psychiatry & Neurology Psychiatry; ATTEND Psychiatry & Neurology Psychiatry
DX: F33.3 Major depressive disorder, recurrent, severe with psychotic symptoms (principal); I11.0 Hypertensive heart disease with heart failure; I50.9 Heart failure, unspecified; R45.851 Suicidal ideations; E78.5 Hyperlipidemia, unspecified; Z21 Asymptomatic human immunodeficiency virus [HIV] infection status; F11.90 Opioid use, unspecified, uncomplicated; F14.90 Cocaine use, unspecified, uncomplicated; F17.200 Nicotine dependence, unspecified, uncomplicated; F41.9 Anxiety disorder, unspecified; G89.29 Other chronic pain; J44.9 Chronic obstructive pulmonary disease, unspecified; L80 Vitiligo; Z59.0 Homelessness; Z79.899 Other long term (current) drug therapy; Z82.49 Family history of ischemic heart disease and other diseases of the circulatory system; Z86.718 Personal history of other venous thrombosis and embolism; Z91.19 Patient's noncompliance with other medical treatment and regimen
CPT/HCPCS: 80053; 80306; 81003; 82075; 84443; 85025; 94640

== ENCOUNTER 2017-04-15 08:34 | Emergency (ER) | payer MEDICARE, OTHER ==
[2017-04-15] MEDS ORDERED: ASPIRIN 81 MG CHEW PO STA (08:51)
[2017-04-15] MEDS ORDERED: SODIUM CHLORIDE 0.9% 1,000 ML IV STA (08:51)
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
[2017-04-15 09:27] LABS: Basophils % (A) 1 %; CH 30.1; CHCM 33.6; Eosinophils # (A) 0.4 k/uL (0-0.7); Eosinophils % (A) 10 %; HCT 30.5 % (39.0-53.0); HDW 2.94; HGB 10.4 gm/dL (13.0-17.5); Luc # (Auto) 0.14; Luc % (Auto) 3; Lymphocytes # (A) 1.2 k/uL (1.0-4.8); Lymphocytes % (A) 28 %; MCH 30.6 pg (25.0-35.0); MCHC 34.1 g/dL (31.0-37.0); Mean Platelet Volume 7.1; Monocytes # (A) 0.3 k/uL (0-1.0); Monocytes % (A) 6 %; Neutrophils # (A) 2.2 k/uL (1.3-7.7); Neutrophils % (A) 53 %; RBC 3.39 m/uL (4.30-5.90); RDW 13.7 % (11.5-15.5); WBC 4.1 k/uL (3.8-10.6)
[2017-04-15 09:42] LABS: INR 1.5 (<1.1); Partial Thromboplastin Time 43.9 sec (22.0-30.0); Prothrombin Time 14.5 sec (9.0-12.0)
[2017-04-15 09:53] LABS: ALT 33 U/L (21-72); AST 28 U/L (17-59); Alkaline Phosphatase 111 U/L (38-126); Anion Gap 11 mmol/L; Blood Urea Nitrogen 19 mg/dL (9-20); Calcium 9.4 mg/dL (8.4-10.2); Carbon Dioxide 24 mmol/L (22-30); Chloride 107 mmol/L (98-107); Creatine Kinase 291 U/L (55-170); Glucose 88 mg/dL (74-99); Magnesium 1.9 mg/dL (1.6-2.3); Non-African American GFR(MDRD) >60 (>60 ml/min/1.73 sqM); Potassium 3.6 mmol/L (3.5-5.1); Sodium 142 mmol/L (137-145); Total Bilirubin 0.6 mg/dL (0.2-1.3); Total Protein 7.4 g/dL (6.3-8.2)
--- NOTE | 2017-04-15 09:54 | XR ---
EXAMINATION TYPE: XR chest 2V DATE OF EXAM: 04/15/2017 COMPARISON: 08/19/2016 HISTORY: Shortness of breath TECHNIQUE: Frontal and lateral views of the chest are obtained. FINDINGS: Scattered senescent parenchymal changes noted. Hyperinflation compatible with COPD. Coarse lung shaq ngs are noted which may reflect underlying fibrosis. Linear atelectasis right middle lobe and left lo wer lobe. No evidence for infiltrate. No evidence for atelectasis. Heart size is stable. Mediastinal structures are stable and grossly unremarkable. No evidence for hilar prominence. Degenerative changes dorsal spine. IMPRESSION: 1. No evidence for acute pulmonary disease.
[2017-04-15 10:05] LABS: Creatine Kinase MB 1.6 ng/mL (0.0-2.4); Troponin I <0.012 ng/mL (0.000-0.034)
[2017-04-15 10:25] VITALS: PULSE 78; RESP 18
[2017-04-15 11:56] VITALS: BP 142/89; TEMP 97.3
--- NOTE | 2017-04-15 11:59 | US ---
EXAMINATION TYPE: US venous doppler duplex LE DATE OF EXAM: 04/15/2017 11:16 AM COMPARISON: CLINICAL HISTORY: Pain. Bilateral swollen feet x 1 month, getting worse. Hx of DVT. CHF. SIDE PERFORMED: Bilateral TECHNIQUE: The lower extremity deep venous system is examined utilizing real time linear array sonog lisa with graded compression, doppler sonography and color-flow sonography. VESSELS IMAGED: External Iliac Vein (EIV) Common Femoral Vein Deep Femoral Vein Greater Saphenous Vein * Femoral Vein Popliteal Vein Small Saphenous Vein * Proximal Calf Veins (* superficial vessels) Grayscale, color doppler, spectral doppler imaging performed of the deep veins of the lower extremiti es. There is normal flow, compressibility, vascular waveforms bilaterally. Right Leg: Appears negative for DVT. Echogenic echoes seen in small saphenous vein, blood flow seen . Left Leg: Appears negative for DVT IMPRESSION: 1 no evidence for DVT. 2. Suspect a degree of thrombophlebitis right lesser saphenous vein
== END 2017-04-15 11:57 | disposition home or self-care (01) ==
LOC: EC 08:34
DX: R60.0 Localized edema (principal); I11.0 Hypertensive heart disease with heart failure; I50.9 Heart failure, unspecified; F17.200 Nicotine dependence, unspecified, uncomplicated; Z21 Asymptomatic human immunodeficiency virus [HIV] infection status; Z88.6 Allergy status to analgesic agent; Z88.1 Allergy status to other antibiotic agents; Z88.2 Allergy status to sulfonamides; Z79.899 Other long term (current) drug therapy
CPT/HCPCS: 36415; 71020; 80053; 82550; 82553; 83735; 83880; 84484; 85025; 85610; 85730; 93005; 93970; 96360; 96361; 99284

== ENCOUNTER 2017-04-18 14:12 | Emergency (ER) | payer MEDICARE, OTHER ==
[2017-04-18 14:26] VITALS: BP 121/78; PULSE 85; RESP 20; TEMP 98.8
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
== END 2017-04-18 15:25 | disposition home or self-care (01) ==
LOC: EC 14:12
DX: I80.01 Phlebitis and thrombophlebitis of superficial vessels of right lower extremity (principal); I10 Essential (primary) hypertension; F17.200 Nicotine dependence, unspecified, uncomplicated; Z21 Asymptomatic human immunodeficiency virus [HIV] infection status; Z88.2 Allergy status to sulfonamides; Z88.6 Allergy status to analgesic agent; Z88.1 Allergy status to other antibiotic agents; Z79.899 Other long term (current) drug therapy
CPT/HCPCS: 99283

== ENCOUNTER → 2017-04-18 | Outpatient (CLI) | payer MEDICARE, OTHER ==
[2017-04-18 12:36] LABS: Basophils % (A) 0 %; CH 29.5; CHCM 33.5; Eosinophils # (A) 0.3 k/uL (0-0.7); Eosinophils % (A) 7 %; HCT 30.1 % (39.0-53.0); HDW 3.02; HGB 10.2 gm/dL (13.0-17.5); Luc # (Auto) 0.16; Luc % (Auto) 4; Lymphocytes # (A) 1.7 k/uL (1.0-4.8); Lymphocytes % (A) 37 %; MCV 88.2 fL (80.0-100.0); Mean Platelet Volume 6.6; Monocytes # (A) 0.3 k/uL (0-1.0); Monocytes % (A) 6 %; Neutrophils # (A) 2.1 k/uL (1.3-7.7); Neutrophils % (A) 46 %; RBC 3.41 m/uL (4.30-5.90); RDW 13.7 % (11.5-15.5); WBC 4.5 k/uL (3.8-10.6); WBC (Perox) 4.26
[2017-04-18 12:37] LABS: Blood Urea Nitrogen 7 mg/dL (9-20); Carbon Dioxide 21 mmol/L (22-30); Non-African American GFR(MDRD) >60 (>60 ml/min/1.73 sqM); Total Protein 7.6 g/dL (6.3-8.2)
[2017-04-18 13:17] LABS: ALT 21 U/L (21-72); AST 31 U/L (17-59); Alkaline Phosphatase 105 U/L (38-126); Anion Gap 15 mmol/L; Chloride 108 mmol/L (98-107); Glucose 96 mg/dL (74-99); Potassium 3.8 mmol/L (3.5-5.1); Sodium 144 mmol/L (137-145); Total Bilirubin 0.5 mg/dL (0.2-1.3)
[2017-04-21 13:14] LABS: LOG HIV Copies/mL <1.60 (<1.60)
== END | disposition home or self-care (01) ==
LOC: LABWHC1 11:46
PROVIDERS: ATTEND Internal Medicine Infectious Disease
DX: B20 Human immunodeficiency virus [HIV] disease (principal)
CPT/HCPCS: 36415; 80053; 85025; 86360; 87536

== ENCOUNTER 2017-05-17 12:29 | Inpatient (IN) | payer MEDICARE, OTHER ==
[2017-05-17] MEDS ORDERED: SODIUM CHLORIDE 0.9% 1,000 ML IV ONE (12:42)
[2017-05-17] MEDS ORDERED: ACETAMINOPHEN IV (For NPO) 1,000 MG in EMPTY BAG 1 BAG IVPB STA (12:42)
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
[2017-05-17 13:13] LABS: Glucose,Whole Blood 154 mg/dL (75-99)
[2017-05-17 14:47] LABS: Basophils % (A) 0 %; CH 28.2; CHCM 32.3; Eosinophils # (A) 0.2 k/uL (0-0.7); Eosinophils % (A) 6 %; HCT 27.6 % (39.0-53.0); HDW 2.85; Luc # (Auto) 0.17; Luc % (Auto) 4; Lymphocytes % (A) 23 %; MCH 28.7 pg (25.0-35.0); MCHC 32.7 g/dL (31.0-37.0); MCV 87.8 fL (80.0-100.0); Mean Platelet Volume 7.1; Monocytes # (A) 0.3 k/uL (0-1.0); Monocytes % (A) 8 %; Neutrophils # (A) 2.4 k/uL (1.3-7.7); Neutrophils % (A) 59 %; RBC 3.14 m/uL (4.30-5.90); RDW 14.8 % (11.5-15.5); WBC 4.1 k/uL (3.8-10.6); WBC (Perox) 4.18
[2017-05-17 14:57] LABS: INR 1.6 (<1.2); Partial Thromboplastin Time 43.7 sec (22.0-30.0); Prothrombin Time 15.4 sec (9.0-12.0)
[2017-05-17 14:59] LABS: Appearance,Urine Cloudy (Clear); Bacteria,Urine Occasional /hpf; Bilirubin,Urine 1+ (Negative); Glucose,Urine (UA) Negative (Negative); Ketones,Urine Negative (Negative); Leukocyte Esterase,Urine Trace (Negative); Mucus,Urine Rare /hpf; Nitrite,Urine Negative (Negative); Particle Count 12927; Protein,Urine Trace (Negative); RBC,Urine 2 /hpf (0-5); Specific Gravity,Urine 1.019 (1.001-1.035); Squamous Epithelial Cell,Urine 2 /hpf (0-4); UA Billing (MACRO vs. MICRO) MICRO; WBC,Urine 2 /hpf (0-5)
[2017-05-17 15:19] LABS: Calcium 9.3 mg/dL (8.4-10.2); Potassium 3.6 mmol/L (3.5-5.1); Total Bilirubin 0.6 mg/dL (0.2-1.3); Total Protein 6.8 g/dL (6.3-8.2)
--- NOTE | 2017-05-17 15:25 | XR ---
EXAMINATION TYPE: XR chest 1V portable DATE OF EXAM: 05/17/2017 COMPARISON: Prior chest x-ray 04/15/2017 HISTORY: Unresponsive TECHNIQUE: Single frontal view of the chest is obtained. FINDINGS: There is been interval placement of a right jugular central venous catheter. There is apic al density on the right, correlate for possible hematoma. No evident pneumothorax or pleural effusion . Distal tip of the catheter within the right atrium. Heart is enlarged. Interstitium is increased. B ilateral airspace disease is noted. IMPRESSION: Correlate for possible traumatic placement of central venous catheter. Bilateral pneumon ia, there is underlying interstitial lung disease, correlate to exclude congestive heart failure.
[2017-05-17 15:30] LABS: Creatine Kinase MB 1.5 ng/mL (0.0-2.4); Troponin I 0.019 ng/mL (0.000-0.034)
--- NOTE | 2017-05-17 15:32 | CT ---
EXAMINATION TYPE: CT brain wo con DATE OF EXAM: 05/17/2017 HISTORY: AMS CT DLP: 1090.4 mGycm. Automated Exposure Control for Dose Reduction was Utilized. TECHNIQUE: CT scan of the head is performed without contrast. COMPARISON: CT brain August 05, 2015. FINDINGS: There is no acute intracranial hemorrhage or midline shift identified. There is diffuse v entricular and sulcal prominence consistent with diffuse age-related cerebral atrophy. There is low- attenuation in the periventricular white matter consistent with chronic small vessel ischemic change. Lenses are deviated, correlate for underlying strabismus. The visualized paranasal sinuses are clear . Vascular calcification of distal internal carotid arteries bilaterally is redemonstrated. IMPRESSION: No acute intracranial hemorrhage or midline shift. There is mild diffuse age-related ce rebral atrophy and moderate to severe chronic small vessel ischemic change redemonstrated. No signif icant change from prior.
[2017-05-17] MEDS ORDERED: LEVOFLOXACIN 750MG-D5W PMX 750 MG in DEXTROSE/WATER 1 150ML.BAG IVPB STA (15:34)
[2017-05-17] MEDS ORDERED: NALOXONE 0.4 MG/ML 10 ML VIAL IVP STA (15:35)
[2017-05-17] MEDS ORDERED: NALOXONE 0.4 MG/ML 1 ML VIAL IV STA (15:55)
[2017-05-17] MEDS ORDERED: PHYTONADIONE 5 MG in SODIUM CHLORIDE 0.9% 50 ML IVPB STA (16:24)
[2017-05-17] MEDS: NALOXONE 4 MG in SODIUM CHLORIDE 0.9% 100 ML IV SCH ×2 (16:26→21:36)
[2017-05-17] MEDS ORDERED: NALOXONE 0.4 MG/ML 1 ML VIAL IV PRN (16:41)
[2017-05-17] MEDS ORDERED: PIPERACILLIN-TAZOBACTAM 3.375 GM in DEXTROSE/WATER 1 50ML.BAG IVPB STA (16:43)
[2017-05-17 18:41] LABS: Glucose,Whole Blood 101 mg/dL (75-99)
[2017-05-17 20:08] LABS: Glucose,Whole Blood 91 mg/dL (75-99)
[2017-05-17] MEDS ORDERED: ACETAMINOPHEN IV (For NPO) 1,000 MG in EMPTY BAG 1 BAG IVPB PRN (20:38)
[2017-05-17 21:17] LABS: Basophils % (A) 1 %; CH 28.8; CHCM 32.8; Eosinophils # (A) 0.2 k/uL (0-0.7); Eosinophils % (A) 4 %; HCT 28.4 % (39.0-53.0); HDW 2.79; HGB 9.3 gm/dL (13.0-17.5); Luc # (Auto) 0.15; Luc % (Auto) 4; Lymphocytes # (A) 0.6 k/uL (1.0-4.8); Lymphocytes % (A) 16 %; MCH 28.7 pg (25.0-35.0); MCHC 32.6 g/dL (31.0-37.0); Mean Platelet Volume 7.9; Monocytes # (A) 0.2 k/uL (0-1.0); Monocytes % (A) 6 %; Neutrophils # (A) 2.8 k/uL (1.3-7.7); Neutrophils % (A) 70 %; RBC 3.23 m/uL (4.30-5.90); RDW 15.3 % (11.5-15.5); WBC 4.1 k/uL (3.8-10.6); WBC (Perox) 4.48
[2017-05-17 21:26] LABS: INR 1.4 (<1.2); Partial Thromboplastin Time 38.1 sec (22.0-30.0); Prothrombin Time 13.5 sec (9.0-12.0)
[2017-05-17 21:53] LABS: Anion Gap 12 mmol/L; Blood Urea Nitrogen 14 mg/dL (9-20); Calcium 9.3 mg/dL (8.4-10.2); Carbon Dioxide 26 mmol/L (22-30); Chloride 106 mmol/L (98-107); Glucose 114 mg/dL (74-99); Magnesium 1.4 mg/dL (1.6-2.3); Non-African American GFR(MDRD) 58 (>60 ml/min/1.73 sqM); Phosphorous 3.9 mg/dL (2.5-4.5); Potassium 3.3 mmol/L (3.5-5.1); Sodium 144 mmol/L (137-145)
[2017-05-17] MEDS ORDERED: Potassium Replacement Protocol 1 EACH MISC MISCELLANE PRN (22:09)
[2017-05-17] MEDS ORDERED: POTASSIUM CHLORIDE 20 MEQ in WATER FOR INJECTION 1 100ML.BAG IVPB ONE (22:09)
[2017-05-17] MEDS ORDERED: Magnesium Replacement Protocol 1 EACH MISC MISCELLANE PRN (22:10)
[2017-05-17] MEDS: MAGNESIUM SULFATE-D5W PMX 1 GM in DEXTROSE/WATER 1 100ML.BAG IVPB SCH ×2 (22:41→23:49)
[2017-05-17] MEDS: SODIUM CHLORIDE 0.9% 1,000 ML IV SCH (22:43)
[2017-05-18] MEDS: PIPERACILLIN-TAZOBACTAM 3.375 GM in DEXTROSE/WATER 1 50ML.BAG IVPB SCH ×3 (00:09→17:01)
[2017-05-18] MEDS: NALOXONE 4 MG in SODIUM CHLORIDE 0.9% 100 ML IV SCH ×2 (00:10→04:24)
[2017-05-18 00:13] LABS: Glucose,Whole Blood 128 mg/dL (75-99)
[2017-05-18] MEDS: MAGNESIUM SULFATE-D5W PMX 1 GM in DEXTROSE/WATER 1 100ML.BAG IVPB SCH (00:56)
[2017-05-18 04:14] LABS: Glucose,Whole Blood 115 mg/dL (75-99)
[2017-05-18 04:44] LABS: INR 1.2 (<1.2)
[2017-05-18 04:45] LABS: Partial Thromboplastin Time 34.5 sec (22.0-30.0); Prothrombin Time 12.2 sec (9.0-12.0)
[2017-05-18 05:01] LABS: Basophils % (A) 0 %; CH 28.7; Eosinophils # (A) 0.1 k/uL (0-0.7); Eosinophils % (A) 2 %; HCT 28.8 % (39.0-53.0); HDW 2.73; HGB 9.1 gm/dL (13.0-17.5); Luc # (Auto) 0.14; Luc % (Auto) 4; Lymphocytes # (A) 0.9 k/uL (1.0-4.8); Lymphocytes % (A) 25 %; MCH 28.4 pg (25.0-35.0); MCHC 31.6 g/dL (31.0-37.0); MCV 89.9 fL (80.0-100.0); Mean Platelet Volume 6.9; Monocytes # (A) 0.3 k/uL (0-1.0); Monocytes % (A) 7 %; Neutrophils # (A) 2.2 k/uL (1.3-7.7); Neutrophils % (A) 61 %; RDW 15.4 % (11.5-15.5); WBC 3.6 k/uL (3.8-10.6); WBC (Perox) 3.65
[2017-05-18 05:49] LABS: Anion Gap 11 mmol/L; Blood Urea Nitrogen 11 mg/dL (9-20); Calcium 9.2 mg/dL (8.4-10.2); Carbon Dioxide 26 mmol/L (22-30); Chloride 107 mmol/L (98-107); Glucose 113 mg/dL (74-99); Magnesium 2.4 mg/dL (1.6-2.3); Non-African American GFR(MDRD) >60 (>60 ml/min/1.73 sqM); Phosphorous 4.4 mg/dL (2.5-4.5); Potassium 4.1 mmol/L (3.5-5.1); Sodium 144 mmol/L (137-145)
--- NOTE | 2017-05-18 08:15 | XR ---
EXAMINATION TYPE: XR chest 1V portable DATE OF EXAM: 05/18/2017 COMPARISON: Prior chest x-ray 05/17/2017 HISTORY: Shortness of breath, cough TECHNIQUE: Single frontal view of the chest is obtained. FINDINGS: Pleural parenchymal changes show similar appearance. Central venous catheter is stable. Ap ical increased density has improved in the interval. No evident pneumothorax or pleural effusion. Int erstitium is increased. Heart size is stable. IMPRESSION: Correlate for pneumonia, there may be interstitial lung disease, cannot exclude pulmonar y venous hypertension and interstitial edema
[2017-05-18] MEDS: ESOMEPRAZOLE 20 MG in SODIUM CHLORIDE 0.9% 50 ML IVPB SCH (08:51)
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
[2017-05-18 14:56] VITALS: BMI 27.3
[2017-05-18] MEDS: METHADONE 10 MG TAB PO SCH (16:41)
[2017-05-18] MEDS: METHADONE 5 MG TAB PO SCH (16:44)
[2017-05-18] MEDS: GABAPENTIN 400 MG CAP PO SCH ×2 (16:45→21:02)
[2017-05-18] MEDS: SODIUM CHLORIDE 0.9% 1,000 ML IV SCH (16:45)
[2017-05-18] MEDS ORDERED: LEVOFLOXACIN 750MG-D5W PMX 750 MG in DEXTROSE/WATER 1 150ML.BAG IVPB SCH ×2 (18:00→21:00)
[2017-05-18] MEDS: RITONAVIR 100 MG TAB PO SCH (20:25)
[2017-05-18] MEDS: ALPRAZolam 0.5 MG TAB PO PRN (21:49)
[2017-05-19] MEDS: PIPERACILLIN-TAZOBACTAM 3.375 GM in DEXTROSE/WATER 1 50ML.BAG IVPB SCH ×4 (00:53→23:00)
[2017-05-19] MEDS: SODIUM CHLORIDE 0.9% 1,000 ML IV SCH ×2 (01:17→14:43)
[2017-05-19] MEDS: METHADONE 10 MG TAB PO SCH (09:16)
[2017-05-19] MEDS: ARIPiprazole 10 MG TAB PO SCH (09:16)
[2017-05-19] MEDS: GABAPENTIN 400 MG CAP PO SCH ×3 (09:17→21:01)
[2017-05-19] MEDS: RITONAVIR 100 MG TAB PO SCH ×2 (09:17→21:01)
[2017-05-19] MEDS: METHADONE 5 MG TAB PO SCH (09:17)
[2017-05-19] MEDS: RALTEGRAVIR POTASSIUM 400 MG TABLET PO SCH ×2 (09:22→09:45)
[2017-05-19] MEDS: DARUNAVIR ETHANOLATE 600 MG PO SCH ×2 (09:22→09:45)
[2017-05-19] MEDS: ESOMEPRAZOLE 20 MG in SODIUM CHLORIDE 0.9% 50 ML IVPB SCH (09:43)
--- NOTE | 2017-05-19 13:50 | PN ---
This is a 62-year-old black male with a history of HIV. The patient was admitted with a diagnosis of mental status changes secondary to sepsis and pneumonia. Also, possibly mental status changes secondary to some unknown pills given to him by some of his friends. The patient is on methadone for narcotic withdrawal. He was admitted a diagnosis of bilateral pneumonia. Has a history of HIV, hepatitis C, history of cocaine and heroin abuse and history of and ongoing tobacco dependence, bipolar disorder, anxiety/depression, hypertension, hyperlipidemia, left-sided pneumothorax, vitiligo, right leg DVT and a previous history of MRSA infection of the right leg. The patient was in the ICU yesterday. We transferred him out to the floor. He has a central line in the right neck area. He wants it out. I did speak to the nurse about that. That was Stephanie. The patient is otherwise doing well, seems relatively stable. We did ask for an ID consult. Dr. Mckay is out of town. He will probably be seen by Dr. Burnett. Temperature 98.7, heart rate 77, respiratory rate 16, blood pressure 117/75, mean 89, 4 liter saturation 94%. Really appears in no acute distress, sitting up in bed. Significant vitiligo of the extremities. HEENT: Grossly unremarkable. NECK: Supple. CARDIOVASCULAR: Reveals regular rhythm and rate. LUNGS: Reveal a few scattered coarse rhonchi. Breath sounds are equal. No wheezes. No crackles. ABDOMEN: Soft. EXTREMITIES: Intact. SKIN: Reveals evidence of vitiligo. Labs are reviewed. White count 3.6, hemoglobin 9.1, hematocrit 28.8, platelet count 368,000. PT 12.2, INR 1.2, PTT 34.5. Electrolytes are all normal. The patient's chest x-ray on the 18 of May shows bilateral pneumonia. There also may be a component of fluid overload. Microbiology is all negative. Medications are reviewed. ASSESSMENT: 1. Mental status changes, likely secondary to sepsis and/or pills given to him by a friend/family member. 2. History of narcotic access with methadone use for withdrawal. 3. Bilateral pneumonia in a patient who is immunocompromised with HIV infection. 4. History of HIV infection with highly affected antiretroviral therapy. 5. History of hepatitis C. 6. History of cocaine and heroin abuse. 7. Chronic and ongoing tobacco dependence. 8. History of bipolar disorder. 9. History of anxiety/depression. 10. Hypertension. 11. Hyperlipidemia. 12. Previous history of left-sided pneumothorax status post chest tube insertion back in 1983. 13. History of vitiligo. 14. Right leg deep venous thrombosis. 15. Previous history of right leg methicillin-resistant Staphylococcus aureus. PLAN: The patient's microbiology is thus far all negative. Labs are reviewed. Everything looks reasonably stable with that. Medications are reviewed. We did ask for an ID consult. The patient is currently on Levaquin and Zosyn. Will continue to follow as needed. NOELLE
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
--- NOTE | 2017-05-19 16:30 | CDI ---
In responding to this query, please exercise your independent professional judgment. The [facility] Coding Staff and Clinical Documentation Specialists appreciate your assistance in clarifying documentation, maintaining compliance with coding guidelines, accurately documenting patients condition and capturing severity of illness. The fact that a question is asked does not imply that any particular answer is desired or expected. Communication forms are a method of clarifying documentation and are not made part of the Legal Health Record. Thank you in advance for your clarification. Last Revision, August 2015 Bernard Corrigan [address] [facility] [place] [address] Documentation Clarification Form Date: 05/19/2017 4:15:00 PM From: Nelda Dawson RN, CDS Admit Date: 05/17/2017 4:41:00 PM Patient Name: Jose Eduardo Mendez Visit Number: [id number] Dr. Vickie Woodward, 62 year old patient with history of HIV admitted Bibasilar Pneumonia and Acute encephalopathy Patients History/Risk Factors: COPD, HTN, HIV, hepatitis, past IV drug use Clinical Indicators: CXR correlate for pneumonia or interstitial lung disease, cannot exclude pulmonary venous hypertension, per H&P "chronic HIV on HAART regiment reported good compliance" Treatment: IV Levaquin, IV Zosyn, pulmonary consult In your professional opinion, can you please clarify if the above clinical indicators and treatment signify one of the following conditions? HIV, asymptomatic without a related condition AIDS, with related infection, please specify infection Unable to determine Other, please specify Please document in your progress notes and discharge summary in order to capture severity of illness and risk of mortality. Include clinical findings that support your diagnosis. FYI: Press F11 to launch patient chart Thank you. NOELLE
[2017-05-19] MEDS ORDERED: LEVOFLOXACIN 750 MG TAB PO SCH (17:00)
[2017-05-19] MEDS: ALPRAZolam 0.5 MG TAB PO PRN (17:26)
[2017-05-20] MEDS: SODIUM CHLORIDE 0.9% 1,000 ML IV SCH (05:16)
[2017-05-20 08:15] VITALS: BP 116/71; PULSE 69; RESP 16; TEMP 98.2
--- NOTE | 2017-05-20 08:20 | XR ---
EXAMINATION TYPE: XR chest 2V DATE OF EXAM: 05/20/2017 COMPARISON: Prior chest x-ray 05/18/2017 HISTORY: Pneumonia TECHNIQUE: Frontal and lateral views of the chest are obtained. FINDINGS: Right jugular central venous catheter is in place. Prominent lung volumes compatible with underlying COPD. Interstitium is increased. Heart is enlarged although patient is rotated. No evident pneumothorax or sizable effusion. Suspect some improvement in airspace disease, subsegmental atelect atic changes persist. IMPRESSION: There may be some improvement in aeration. Emphysema, interstitial lung disease, correla te for possible volume overload, pulmonary venous hypertension and interstitial edema.
[2017-05-20] MEDS: ESOMEPRAZOLE 20 MG in SODIUM CHLORIDE 0.9% 50 ML IVPB SCH (09:34)
[2017-05-20] MEDS: PIPERACILLIN-TAZOBACTAM 3.375 GM in DEXTROSE/WATER 1 50ML.BAG IVPB SCH (09:35)
[2017-05-20] MEDS: GABAPENTIN 400 MG CAP PO SCH (09:35)
[2017-05-20] MEDS: ARIPiprazole 10 MG TAB PO SCH (09:36)
[2017-05-20] MEDS: RITONAVIR 100 MG TAB PO SCH (09:36)
[2017-05-20] MEDS: METHADONE 10 MG TAB PO SCH (09:44)
[2017-05-20] MEDS: METHADONE 5 MG TAB PO SCH (09:45)
[2017-05-20] MEDS: ALPRAZolam 0.5 MG TAB PO PRN (12:50)
--- NOTE | 2017-05-20 12:52 | P.DS ---
Providers Date of admission: 05/17/17 16:41 Expected date of discharge: 05/20/17 Attending physician: Vickie Woodward Consults: 05/17/17 16:41 Consult Physician Urgent Consulting Provider: Lenny Porter Consult Reason/Comments: Critical care management Do you want consulting provider notified?: Yes Primary care physician: [facility] Course: 1. Acute encephalopathy/mental status change, may be attributed to dehydration and methadone use. Patient recovered quickly. He's back to his normal self 2. Bi-basilar pneumonia seen and evaluated by pulmonology. Will finish antibiotic course with oral Augmentin: 3. Chronic HIV, asymptomatic without related condition , on HAART regimen, patient reported good compliance 4. History of polysubstance abuse currently in the rehab on methadone with [place] 5. Chronic hepatitis C 6. Underlying bipolar disorder with multiple admissions to the psych unit 7. Chronic vitiligo Patient Condition at Discharge: Fair Plan - Discharge Summary New Discharge Prescriptions: New Amoxic-Pot Clav 875-125Mg [Augmentin 875-125] 1 tab PO Q12HR #10 tablet Continue Albuterol Inhaler [Ventolin Hfa Inhaler] 2 puff INHALATION RT-Q6H PRN #1 puff PRN Reason: Shortness Of Breath Atenolol [Tenormin] 25 mg PO DAILY #30 tab Rivaroxaban [Xarelto] 20 mg PO HS #30 tab amLODIPine [Norvasc] 10 mg PO DAILY Baclofen [Lioresal] 20 mg PO BID Raltegravir Potassium [Isentress] 400 mg PO BID Darunavir Ethanolate [Prezista] 600 mg PO BID ARIPiprazole [Abilify] 10 mg PO DAILY #30 tab Methadone [Dolophine] 60 mg PO DAILY #7 tab Mirtazapine [Remeron] 45 mg PO HS #30 Furosemide [Lasix] 20 mg PO DAILY #4 tab Gabapentin 800 mg PO QID Amitriptyline HCl [Elavil] 25 - 50 mg PO HS Ritonavir [Norvir] 100 mg PO BID Discharge Medication List Albuterol Inhaler [Ventolin Hfa Inhaler] 2 puff INHALATION RT-Q6H PRN #1 puff [Rx] Atenolol [Tenormin] 25 mg PO DAILY #30 tab 11/15/16 [Rx] Rivaroxaban [Xarelto] 20 mg PO HS #30 tab 11/15/16 [Rx] Baclofen [Lioresal] 20 mg PO BID 03/28/17 [History] Darunavir Ethanolate [Prezista] 600 mg PO BID 03/28/17 [History] Raltegravir Potassium [Isentress] 400 mg PO BID 03/28/17 [History] amLODIPine [Norvasc] 10 mg PO DAILY 03/28/17 [History] ARIPiprazole [Abilify] 10 mg PO DAILY #30 tab 04/05/17 [Rx] Methadone [Dolophine] 60 mg PO DAILY #7 tab 04/05/17 [Rx] Mirtazapine [Remeron] 45 mg PO HS #30 04/05/17 [Rx] Furosemide [Lasix] 20 mg PO DAILY #4 tab 04/18/17 [Rx] Amitriptyline HCl [Elavil] 25 - 50 mg PO HS 05/17/17 [History] Gabapentin 800 mg PO QID 05/17/17 [History] Ritonavir [Norvir] 100 mg PO BID 05/17/17 [History] Amoxic-Pot Clav 875-125Mg [Augmentin 875-125] 1 tab PO Q12HR #10 tablet [Rx] Follow up Appointment(s)/Referral(s): Noah Mckay MD [STAFF PHYSICIAN] - 2 Weeks Renu Mohamud DO [REFERRING] - 3 Days Patient Instructions/Handouts: How to Stop Smoking (DC), Pneumonia (DC) Activity/Diet/Wound Care/Special Instructions: Cardiac, diabetic diet. NO smoking, cessation information provided. No illegal drug use. Take medications as prescribed. Fall precautions, up with walker. Discharge Disposition: HOME SELF-CARE
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
== END 2017-05-20 15:20 | disposition home or self-care (01) | DRG 917 ==
LOC: EC 12:29 → 6ICU 16:41 → 4MS4W 05-18 17:34
PROVIDERS: ADMIT Internal Medicine; ATTEND Internal Medicine
PROC: 302 Administration, Circulatory, Transfusion (ICD-10-PCS; principal; 2017-05-17)
PROC: 02H633Z Insertion of Infusion Device into Right Atrium, Percutaneous Approach (ICD-10-PCS; 2017-05-17)
DX: T40.3X1A Poisoning by methadone, accidental (unintentional), initial encounter (principal); B20 Human immunodeficiency virus [HIV] disease; G93.40 Encephalopathy, unspecified; J18.9 Pneumonia, unspecified organism; J84.9 Interstitial pulmonary disease, unspecified; J44.0 Chronic obstructive pulmonary disease with (acute) lower respiratory infection; F11.23 Opioid dependence with withdrawal; E86.0 Dehydration; B18.2 Chronic viral hepatitis C; E78.5 Hyperlipidemia, unspecified; I10 Essential (primary) hypertension; F31.9 Bipolar disorder, unspecified; L80 Vitiligo; G89.29 Other chronic pain; F17.200 Nicotine dependence, unspecified, uncomplicated; M54.9 Dorsalgia, unspecified; F41.9 Anxiety disorder, unspecified; Z79.01 Long term (current) use of anticoagulants; Z79.899 Other long term (current) drug therapy; Z86.718 Personal history of other venous thrombosis and embolism; Z87.440 Personal history of urinary (tract) infections; Z86.14 Personal history of Methicillin resistant Staphylococcus aureus infection; Z88.1 Allergy status to other antibiotic agents; Z88.2 Allergy status to sulfonamides; Z88.8 Allergy status to other drugs, medicaments and biological substances
CPT/HCPCS: 36415; 36556; 70450; 71010; 71020; 80048; 80053; 80306; 81001; 82550; 82553; 83605; 83735; 84100; 84484; 85025; 85610; 85730; 86850; 86900; 86901; 93005; 96361; 96365; 96366; 96368; 96375; 99291

== ENCOUNTER 2017-05-30 14:19 | Emergency (ER) | payer MEDICARE, OTHER ==
[2017-05-30] MEDS ORDERED: ACETAMINOPHEN TAB 500 MG TAB PO STA (14:50)
[2017-05-30] MEDS ORDERED: SODIUM CHLORIDE 0.9% 1,000 ML IV STA (14:50)
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
--- NOTE | 2017-05-30 16:12 | XR ---
EXAMINATION TYPE: XR chest 2V DATE OF EXAM: 05/30/2017 COMPARISON: NONE HISTORY: Shortness of breath TECHNIQUE: Frontal and lateral views of the chest are obtained. FINDINGS: Scattered senescent parenchymal changes noted. Hyperinflation compatible with COPD. Scattered areas of patchy density persists although appear to be improved. Heart size is stable. Mediastinal structures are stable and grossly unremarkable. No evidence for hilar prominence. Degenerative changes dorsal spine. IMPRESSION: 1. Scattered areas of patchy density persists although appear to be improved.
[2017-05-30 16:18] LABS: Basophils % (A) 1 %; CH 28.3; Eosinophils # (A) 0.3 k/uL (0-0.7); Eosinophils % (A) 6 %; HCT 29.2 % (39.0-53.0); HGB 9.2 gm/dL (13.0-17.5); Hypochromasia Slight; Luc # (Auto) 0.14; Luc % (Auto) 3; Lymphocytes # (A) 1.6 k/uL (1.0-4.8); Lymphocytes % (A) 37 %; MCHC 31.7 g/dL (31.0-37.0); MCV 88.5 fL (80.0-100.0); Mean Platelet Volume 7.1; Monocytes # (A) 0.2 k/uL (0-1.0); Monocytes % (A) 5 %; Neutrophils # (A) 2.1 k/uL (1.3-7.7); Neutrophils % (A) 48 %; RBC 3.29 m/uL (4.30-5.90); RDW 15.4 % (11.5-15.5); WBC 4.3 k/uL (3.8-10.6); WBC (Perox) 4.46
[2017-05-30 16:27] LABS: ALT 23 U/L (21-72); AST 28 U/L (17-59); Alkaline Phosphatase 111 U/L (38-126); Anion Gap 9 mmol/L; Blood Urea Nitrogen 8 mg/dL (9-20); Calcium 9.4 mg/dL (8.4-10.2); Carbon Dioxide 28 mmol/L (22-30); Chloride 105 mmol/L (98-107); Glucose 70 mg/dL (74-99); Non-African American GFR(MDRD) >60 (>60 ml/min/1.73 sqM); Potassium 3.9 mmol/L (3.5-5.1); Sodium 142 mmol/L (137-145); Total Bilirubin 0.3 mg/dL (0.2-1.3); Total Protein 7.1 g/dL (6.3-8.2)
[2017-05-30 16:28] LABS: INR 1.3 (<1.2); Partial Thromboplastin Time 36.4 sec (22.0-30.0); Prothrombin Time 12.4 sec (9.0-12.0)
[2017-05-30 17:02] LABS: Appearance,Urine Clear (Clear); Bilirubin,Urine Negative (Negative); Glucose,Urine (UA) Negative (Negative); Ketones,Urine Negative (Negative); Leukocyte Esterase,Urine Negative (Negative); Nitrite,Urine Negative (Negative); PH, Urine 7.5 (5.0-8.0); Protein,Urine Negative (Negative); Specific Gravity,Urine 1.009 (1.001-1.035); UA Billing (MACRO vs. MICRO) CHEM
[2017-05-30 17:38] VITALS: RESP 18
[2017-05-30 18:41] VITALS: BP 110/62; PULSE 70; TEMP 98.3
== END 2017-05-30 18:30 | disposition home or self-care (01) ==
LOC: EC 14:19
DX: J20.9 Acute bronchitis, unspecified (principal); H10.9 Unspecified conjunctivitis; E86.0 Dehydration; I10 Essential (primary) hypertension; Z86.14 Personal history of Methicillin resistant Staphylococcus aureus infection; Z86.718 Personal history of other venous thrombosis and embolism; Z21 Asymptomatic human immunodeficiency virus [HIV] infection status; F17.200 Nicotine dependence, unspecified, uncomplicated; Z79.899 Other long term (current) drug therapy; Z88.1 Allergy status to other antibiotic agents; Z88.2 Allergy status to sulfonamides; Z88.6 Allergy status to analgesic agent
CPT/HCPCS: 36415; 71020; 80053; 81003; 83605; 83690; 85025; 85610; 85730; 87040; 87077; 87086; 87186; 96360; 96361; 99285

== ENCOUNTER 2017-06-08 08:30 | Emergency (ER) | payer MEDICARE, OTHER ==
[2017-06-08] MEDS ORDERED: methylPREDNISolone SOD SUCCI 125 MG/2 ML VIAL IV STA (09:05)
[2017-06-08] MEDS ORDERED: SODIUM CHLORIDE 0.9% 1,000 ML IV STA (09:05)
[2017-06-08] MEDS ORDERED: ACETAMINOPHEN TAB 500 MG TAB PO STA (09:05)
[2017-06-08] MEDS ORDERED: IPRATROPIUM-ALBUTEROL 3 ML NEB INHALATION STA (09:05)
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
--- NOTE | 2017-06-08 10:25 | XR ---
EXAMINATION TYPE: XR chest 2V DATE OF EXAM: 06/08/2017 COMPARISON: 05/30/2017 HISTORY: Cough, congestion, and mucus production TECHNIQUE: Frontal and lateral views of the chest are obtained. FINDINGS: Scattered areas of subsegmental atelectasis are appreciated as well as redemonstration of pulmonary hyperinflation compatible with known underlying COPD. There is chronic pleural parenchymal scarring are noted peripherally. No focal consolidation is appreciated to suggest pneumonia. Cardiac silhouette is again mildly enlarged. Osseous structures are intact. IMPRESSION: 1. No focal consolidation to suggest pneumonia. 2. Scattered areas of atelectasis and parenchymal scarring. 3. Sequela of COPD.
[2017-06-08] MEDS ORDERED: SODIUM CHLORIDE 0.9% 1,000 ML IV SCH (10:30)
[2017-06-08 10:38] LABS: Basophils % (A) 1 %; Eosinophils # (A) 0.3 k/uL (0-0.7); Eosinophils % (A) 8 %; HCT 28.9 % (39.0-53.0); HDW 2.82; HGB 9.3 gm/dL (13.0-17.5); Hypochromasia Slight; Luc # (Auto) 0.15; Luc % (Auto) 4; Lymphocytes # (A) 1.2 k/uL (1.0-4.8); Lymphocytes % (A) 32 %; MCH 28.1 pg (25.0-35.0); MCHC 32.1 g/dL (31.0-37.0); MCV 87.7 fL (80.0-100.0); Mean Platelet Volume 6.9; Monocytes # (A) 0.3 k/uL (0-1.0); Monocytes % (A) 7 %; Neutrophils # (A) 1.9 k/uL (1.3-7.7); Neutrophils % (A) 49 %; RDW 15.8 % (11.5-15.5); WBC 3.9 k/uL (3.8-10.6)
[2017-06-08 10:41] LABS: ALT 23 U/L (21-72); AST 27 U/L (17-59); Alkaline Phosphatase 129 U/L (38-126); Anion Gap 13 mmol/L; Blood Urea Nitrogen 10 mg/dL (9-20); Calcium 9.5 mg/dL (8.4-10.2); Carbon Dioxide 24 mmol/L (22-30); Chloride 106 mmol/L (98-107); Glucose 94 mg/dL (74-99); Non-African American GFR(MDRD) >60 (>60 ml/min/1.73 sqM); Potassium 3.7 mmol/L (3.5-5.1); Sodium 143 mmol/L (137-145); Total Bilirubin 0.4 mg/dL (0.2-1.3); Total Protein 7.3 g/dL (6.3-8.2)
[2017-06-08] MEDS ORDERED: PIPERACILLIN-TAZOBACTAM 3.375 GM in DEXTROSE/WATER 1 50ML.BAG IVPB STA (13:18)
[2017-06-08 14:17] VITALS: BP 121/74; PULSE 84; RESP 18; TEMP 98.2
[2017-06-08] MEDS ORDERED: PIPERACILLIN-TAZOBACTAM 3.375 GM in DEXTROSE/WATER 1 50ML.BAG IVPB SCH (16:00)
[2017-06-09] MEDS ORDERED: LEVOFLOXACIN 750MG-D5W PMX 750 MG in DEXTROSE/WATER 1 150ML.BAG IVPB SCH (12:22)
== END 2017-06-08 14:17 | disposition home or self-care (01) ==
LOC: EC 08:30
DX: R04.2 Hemoptysis (principal); J40 Bronchitis, not specified as acute or chronic; F17.200 Nicotine dependence, unspecified, uncomplicated; I10 Essential (primary) hypertension; B20 Human immunodeficiency virus [HIV] disease; Z87.01 Personal history of pneumonia (recurrent); Z98.890 Other specified postprocedural states; Z53.8 Procedure and treatment not carried out for other reasons; Z88.6 Allergy status to analgesic agent; Z88.2 Allergy status to sulfonamides; Z88.1 Allergy status to other antibiotic agents; Z79.891 Long term (current) use of opiate analgesic; Z79.899 Other long term (current) drug therapy
CPT/HCPCS: 36415; 94640; 80053; 86360; 83605; 85025; 87040; 71020; 99284; 96365; 96375; 96361 ×4; J2930; J0696

== ENCOUNTER 2017-07-03 11:29 | Emergency (ER) | payer MEDICARE, OTHER ==
[2017-07-03] MEDS ORDERED: SODIUM CHLORIDE 0.9% 1,000 ML IV STA (12:03)
[2017-07-03] MEDS ORDERED: SODIUM CHLORIDE 0.9% 2,000 ML IV STA (12:03)
[2017-07-03] MEDS ORDERED: ONDANSETRON 4 MG/2 ML VIAL IVP STA (12:03)
[2017-07-03] MEDS ORDERED: FAMOTIDINE 20 MG/2 ML VIAL IV STA (12:03)
[2017-07-03] MEDS ORDERED: HYDROmorphone 1 MG/ML 1 ML SYRINGE IVP STA ×2 (12:03→14:29)
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
[2017-07-03 12:33] LABS: Basophils % (A) 1 %; CH 26.3; CHCM 31.6; Eosinophils # (A) 0.3 k/uL (0-0.7); Eosinophils % (A) 7 %; HCT 35.5 % (39.0-53.0); HDW 2.94; HGB 11.6 gm/dL (13.0-17.5); Hypochromasia Slight; Luc # (Auto) 0.12; Luc % (Auto) 3; Lymphocytes # (A) 1.2 k/uL (1.0-4.8); Lymphocytes % (A) 31 %; MCH 27.4 pg (25.0-35.0); MCHC 32.8 g/dL (31.0-37.0); MCV 83.5 fL (80.0-100.0); Mean Platelet Volume 7.5; Monocytes # (A) 0.3 k/uL (0-1.0); Monocytes % (A) 6 %; Neutrophils % (A) 52 %; RBC 4.24 m/uL (4.30-5.90); RDW 15.1 % (11.5-15.5); WBC 3.9 k/uL (3.8-10.6); WBC (Perox) 3.81
[2017-07-03 12:44] LABS: ALT 25 U/L (21-72); AST 29 U/L (17-59); Alkaline Phosphatase 168 U/L (38-126); Amylase 54 U/L (30-110); Anion Gap 12 mmol/L; Blood Urea Nitrogen 6 mg/dL (9-20); Calcium 10.1 mg/dL (8.4-10.2); Carbon Dioxide 23 mmol/L (22-30); Chloride 109 mmol/L (98-107); Glucose 106 mg/dL (74-99); Non-African American GFR(MDRD) >60 (>60 ml/min/1.73 sqM); Potassium 3.9 mmol/L (3.5-5.1); Sodium 144 mmol/L (137-145); Total Bilirubin 0.6 mg/dL (0.2-1.3); Total Protein 7.8 g/dL (6.3-8.2)
[2017-07-03 14:39] VITALS: BP 140/82; PULSE 96; RESP 16; TEMP 97.4
== END 2017-07-03 15:02 | disposition home or self-care (01) ==
LOC: EC 11:29
DX: R11.2 Nausea with vomiting, unspecified (principal); G89.29 Other chronic pain; M54.9 Dorsalgia, unspecified; I10 Essential (primary) hypertension; F17.200 Nicotine dependence, unspecified, uncomplicated; Z79.899 Other long term (current) drug therapy; Z88.6 Allergy status to analgesic agent; Z88.2 Allergy status to sulfonamides; Z88.1 Allergy status to other antibiotic agents
CPT/HCPCS: 36415; 80053; 82150; 83690; 85025; 99284; 96374; 96375 ×2; 96361; J2405; J1170

== ENCOUNTER 2017-07-14 19:39 | Emergency (ER) | payer MEDICARE, OTHER ==
[2017-07-14 19:45] VITALS: BP 135/88; PULSE 94; RESP 20; TEMP 98.5
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
[2017-07-14] MEDS ORDERED: HYDROcodone/APAP 5-325MG 1 EACH TAB PO STA (23:06)
== END 2017-07-14 23:21 | disposition home or self-care (01) ==
LOC: EC 19:39
DX: F31.9 Bipolar disorder, unspecified (principal); E78.5 Hyperlipidemia, unspecified; I10 Essential (primary) hypertension; F41.9 Anxiety disorder, unspecified; F17.200 Nicotine dependence, unspecified, uncomplicated; Z86.718 Personal history of other venous thrombosis and embolism; Z21 Asymptomatic human immunodeficiency virus [HIV] infection status; Z88.6 Allergy status to analgesic agent; Z88.1 Allergy status to other antibiotic agents; Z88.2 Allergy status to sulfonamides; Z79.01 Long term (current) use of anticoagulants; Z79.899 Other long term (current) drug therapy
CPT/HCPCS: 80306; 82075; 99284

== ENCOUNTER 2017-07-17 22:44 | Emergency (ER) | payer MEDICARE, OTHER ==
[2017-07-17] MEDS ORDERED: ORPHENADRINE 30 MG/ML 2 ML VIAL IM STA (23:22)
[2017-07-17] MEDS ORDERED: HYDROmorphone 1 MG/ML 1 ML SYRINGE IVP STA (23:22)
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
[2017-07-17] MEDS ORDERED: ORPHENADRINE 30 MG/ML 2 ML VIAL IVP STA (23:42)
[2017-07-18 00:19] LABS: Appearance,Urine Clear (Clear); Bilirubin,Urine Negative (Negative); Glucose,Urine (UA) Negative (Negative); Ketones,Urine Negative (Negative); Leukocyte Esterase,Urine Negative (Negative); Nitrite,Urine Negative (Negative); Protein,Urine Negative (Negative); Specific Gravity,Urine 1.008 (1.001-1.035); UA Billing (MACRO vs. MICRO) CHEM; Urobilinogen,Urine <2.0 mg/dL (<2.0)
[2017-07-18] MEDS ORDERED: HYDROmorphone 1 MG/ML 1 ML SYRINGE IVP STA (00:44)
--- NOTE | 2017-07-18 00:47 | XR ---
EXAM: XR Chest, 2 Views CLINICAL HISTORY: Reason: Pain. History of COPD. TECHNIQUE: Frontal and lateral views of the chest. COMPARISON: Chest radiograph on 06/08/2017 FINDINGS: Lungs/pleura: Flattening of the diaphragms again noted compatible with COPD changes. Probable areas of chronic scarring in the mid and lower lung zones bilaterally. No focal consolidation. No pleural effusion or pneumothorax. Heart/mediastinum: Stable cardiomediastinal silhouette. Soft tissues: Unremarkable. Bones: No acute fracture. Mild scoliosis. Degenerative changes of the acromioclavicular joints. Similar sclerosis in the humeral heads IMPRESSION: Similar COPD changes with chronic scarring and/or atelectasis in the mid and lower lung zones bilaterally. No focal consolidation or pleural effusion.
[2017-07-18] MEDS ORDERED: HYDROmorphone 0.5 MG/0.5 ML SYRINGE IM STA (00:57)
[2017-07-18 01:00] LABS: Aty Lym Flag Slight; CH 25.7; CHCM 30.8; HCT 39.9 % (39.0-53.0); HDW 2.64; HGB 12.7 gm/dL (13.0-17.5); Hypochromasia Moderate; MCH 26.6 pg (25.0-35.0); MCHC 31.8 g/dL (31.0-37.0); MCV 83.7 fL (80.0-100.0); Mean Platelet Volume 6.4; RBC 4.76 m/uL (4.30-5.90); RDW 15.2 % (11.5-15.5); WBC 4.4 k/uL (3.8-10.6); WBC (Perox) 4.55
[2017-07-18 01:18] LABS: ALT 32 U/L (21-72); AST 37 U/L (17-59); Alkaline Phosphatase 197 U/L (38-126); Anion Gap 14 mmol/L; Blood Urea Nitrogen 19 mg/dL (9-20); C Reactive Protein 6.9 mg/L (<10.0); Calcium 9.6 mg/dL (8.4-10.2); Carbon Dioxide 21 mmol/L (22-30); Chloride 106 mmol/L (98-107); Glucose 101 mg/dL (74-99); Non-African American GFR(MDRD) >60 (>60 ml/min/1.73 sqM); Potassium 3.9 mmol/L (3.5-5.1); Sodium 141 mmol/L (137-145); Total Bilirubin 0.3 mg/dL (0.2-1.3); Total Protein 7.6 g/dL (6.3-8.2)
[2017-07-18 01:23] LABS: Add Differential Manual Differential
[2017-07-18 01:24] LABS: Nucleated Red Blood Cells 0 /100 WBC (0-0); Total Cells Counted 100
[2017-07-18 01:25] LABS: Manual Review Performed
[2017-07-18 01:46] LABS: Erythrocyte Sedimentation Rate 54 mm/hr (0-15)
[2017-07-18 02:25] VITALS: BP 125/80; PULSE 80; RESP 16; TEMP 99
== END 2017-07-18 02:25 | disposition home or self-care (01) ==
LOC: EC 22:44
DX: G89.29 Other chronic pain (principal); M54.5 Low back pain; M25.552 Pain in left hip; R50.9 Fever, unspecified; R10.32 Left lower quadrant pain; R05 Cough; J44.9 Chronic obstructive pulmonary disease, unspecified; B20 Human immunodeficiency virus [HIV] disease; I10 Essential (primary) hypertension; F41.9 Anxiety disorder, unspecified; F17.200 Nicotine dependence, unspecified, uncomplicated; Z79.01 Long term (current) use of anticoagulants; Z79.899 Other long term (current) drug therapy; Z88.1 Allergy status to other antibiotic agents; Z88.2 Allergy status to sulfonamides; Z88.6 Allergy status to analgesic agent; Z86.718 Personal history of other venous thrombosis and embolism
CPT/HCPCS: 99283 ×2; 96372 ×3; 36415; 80053; 85652; 85025; 86140; 81003; 87040; 87502; 71020; J2360; J1170

== ENCOUNTER 2017-08-04 10:55 | Emergency (ER) | payer MEDICARE, OTHER ==
[2017-08-04 11:28] VITALS: BP 131/72; PULSE 68; RESP 18; TEMP 99.3
[2017-08-04] MEDS ORDERED: KETOROLAC 60 MG/2 ML VIAL IM STA (12:04)
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
== END 2017-08-04 12:38 | disposition home or self-care (01) ==
LOC: EC 10:55
DX: M25.552 Pain in left hip (principal); M54.5 Low back pain; I10 Essential (primary) hypertension; F31.9 Bipolar disorder, unspecified; F41.9 Anxiety disorder, unspecified; F17.200 Nicotine dependence, unspecified, uncomplicated; Z79.899 Other long term (current) drug therapy; Z79.01 Long term (current) use of anticoagulants
CPT/HCPCS: 99283 ×2; 96372 ×2; J1885

== ENCOUNTER 2017-08-25 07:55 | Emergency (ER) | payer MEDICARE, OTHER ==
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
[2017-08-25 08:34] LABS: Appearance,Urine Clear (Clear); Bilirubin,Urine Negative (Negative); Glucose,Urine (UA) Negative (Negative); Ketones,Urine Negative (Negative); Leukocyte Esterase,Urine Negative (Negative); Mucus,Urine Rare /hpf; Nitrite,Urine Negative (Negative); PH, Urine 5.5 (5.0-8.0); Particle Count 3149; Protein,Urine 1+ (Negative); Specific Gravity,Urine 1.016 (1.001-1.035); Squamous Epithelial Cell,Urine <1 /hpf (0-4); UA Billing (MACRO vs. MICRO) MICRO; WBC,Urine 1 /hpf (0-5)
[2017-08-25 09:33] LABS: Anisocytosis Slight; Aty Lym Flag Slight; CH 26.6; HCT 40.1 % (39.0-53.0); HDW 2.66; HGB 12.3 gm/dL (13.0-17.5); Hypochromasia Slight; MCH 26.5 pg (25.0-35.0); MCHC 30.8 g/dL (31.0-37.0); RBC 4.66 m/uL (4.30-5.90); RDW 16.4 % (11.5-15.5); WBC 5.3 k/uL (3.8-10.6)
[2017-08-25 09:43] LABS: Calcium 9.7 mg/dL (8.4-10.2); Potassium 3.9 mmol/L (3.5-5.1); Total Bilirubin 0.3 mg/dL (0.2-1.3); Total Protein 8.7 g/dL (6.3-8.2)
[2017-08-25 09:58] LABS: Add Differential Manual Differential
[2017-08-25 10:00] LABS: Nucleated Red Blood Cells 0 /100 WBC (0-0); Total Cells Counted 100
[2017-08-25 11:10] VITALS: BP 140/81; PULSE 81; RESP 16; TEMP 98
== END 2017-08-25 11:10 | disposition home or self-care (01) ==
LOC: EC 07:55
DX: E86.0 Dehydration (principal); R74.8 Abnormal levels of other serum enzymes; F19.10 Other psychoactive substance abuse, uncomplicated; I10 Essential (primary) hypertension; F41.9 Anxiety disorder, unspecified; F31.9 Bipolar disorder, unspecified; F17.200 Nicotine dependence, unspecified, uncomplicated; Z21 Asymptomatic human immunodeficiency virus [HIV] infection status; Z86.718 Personal history of other venous thrombosis and embolism; Z86.19 Personal history of other infectious and parasitic diseases; Z86.14 Personal history of Methicillin resistant Staphylococcus aureus infection; Z88.6 Allergy status to analgesic agent; Z88.1 Allergy status to other antibiotic agents; Z88.2 Allergy status to sulfonamides; Z79.01 Long term (current) use of anticoagulants; Z79.899 Other long term (current) drug therapy
CPT/HCPCS: 36415; 51702; 51798; 80053; 81001; 85025; 87086; 99284

== ENCOUNTER 2017-08-31 14:30 | Emergency (ER) | payer MEDICARE, OTHER ==
[2017-08-31] MEDS ORDERED: IPRATROPIUM-ALBUTEROL 3 ML NEB INHALATION STA (14:52)
[2017-08-31] MEDS ORDERED: BENZONATATE 100 MG CAP PO STA (14:53)
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
--- NOTE | 2017-08-31 16:15 | XR ---
EXAMINATION TYPE: XR chest 2V DATE OF EXAM: 08/31/2017 COMPARISON: 07/18/2017 TECHNIQUE: PA and lateral views submitted. HISTORY: Shortness of breath FINDINGS: Heart size is prominent there is hyperinflation suggestive of COPD. Arthropathy of the shoulders note d. No pneumothorax. No interstitial edema. Subsegmental changes involving the lung bases suggestive o f atelectasis IMPRESSION: 1. Subsegmental basilar changes more likely related atelectasis than infiltrate but correlate clinica lly. 2. COPD. Cannot exclude mild central venous congestion.
[2017-08-31 16:37] VITALS: BP 134/84; PULSE 89; RESP 18; TEMP 101
[2017-08-31] MEDS ORDERED: ACETAMINOPHEN TAB 500 MG TAB PO STA (16:45)
== END 2017-08-31 16:55 | disposition home or self-care (01) ==
LOC: EC 14:30
DX: J20.9 Acute bronchitis, unspecified (principal); E78.5 Hyperlipidemia, unspecified; I10 Essential (primary) hypertension; F41.9 Anxiety disorder, unspecified; F32.9 Major depressive disorder, single episode, unspecified; F17.200 Nicotine dependence, unspecified, uncomplicated; Z21 Asymptomatic human immunodeficiency virus [HIV] infection status; Z86.19 Personal history of other infectious and parasitic diseases; Z86.718 Personal history of other venous thrombosis and embolism; Z88.1 Allergy status to other antibiotic agents; Z88.6 Allergy status to analgesic agent; Z79.01 Long term (current) use of anticoagulants; Z79.899 Other long term (current) drug therapy
CPT/HCPCS: 71020; 93005; 94640; 99285

== ENCOUNTER 2017-10-03 07:15 | Day surgery (SDC) | payer MEDICARE, OTHER ==
[2017-10-03 08:34] VITALS: RESP 16; TEMP 98.6
[2017-10-03] MEDS ORDERED: TRIAMCINOLONE ACETONIDE 40 MG/ML 1 ML VIAL INTRABURSA ONE (09:10)
[2017-10-03] MEDS ORDERED: BUPIVACAINE (PF) 0.25% 30 ML VIAL MISCELLANE ONE (09:10)
[2017-10-03 09:55] VITALS: BP 143/88; PULSE 76
--- NOTE | 2017-10-03 16:13 | US ---
Ultrasound guided injection of the left hip Date: 10/03/2017. History: 62-year-old male with left hip arthritis Procedure: 1. Ultrasound of the left hip 2. Injection of Kenalog and bupivacaine with ultrasound guidance. Technique: The procedure, risks, and alternatives, were discussed with the patient, who requested acacia t we proceed. The consent form was signed, and teach-back occurred. The site/side of the procedure wa s marked with a line with participation by the patient. The accompanying paperwork was verified for c onsistency. A directed history and physical exam was performed prior to the procedure. Medication rec onciliation was performed by ancillary personnel. A critical pause was performed with assisting dayana garcia just prior to the procedure and the patient's identity was confirmed using 2 identifiers. Imagin g guidance was utilized to select the precise skin entry point just prior to the procedure. The left hip was prepped and draped in the usual sterile fashion and local 1% lidocaine anesthesia wa s instilled. Under ultrasound guidance, a 20-gauge spinal needle was introduced into the left hip joint. Ultrasoun d confirmed the position of the needle tip. Under ultrasound surveillance, 2 mL of Kenalog-40 and 2 mL of 0.25% Bupivacaine were injected into th e left hip from single dose vials. The needle was then removed. The patient tolerated the procedure well. There were no immediate complications. After the procedure, the patient's condition was unchanged. Es timated blood loss was minimal. The patient was instructed on routine postprocedure precautions, incl uding monitoring for signs of infection. IMPRESSION: Successful ultrasound guided injection of the left hip (80 mg Kenalog and 2 ml 0.25% Bupivacaine) wit pankaj immediate complication.
== END 2017-10-03 09:40 | disposition home or self-care (01) ==
LOC: RADPROMAIN 07:15
PROVIDERS: ATTEND Orthopaedic Surgery Adult Reconstructive Orthopaedic Surgery
DX: M16.12 Unilateral primary osteoarthritis, left hip (principal); M87.00 Idiopathic aseptic necrosis of unspecified bone
CPT/HCPCS: 20611; J3301; 76942